=== PATIENT | female | born 1975 | race American Indian/Alaskan Native ===

== ENCOUNTER 2016-12-08 10:00 | Outpatient (CLI) | payer BC ==
[2016-12-08 13:06] LABS: BASOPHILS % (AUTO) 0.4 %; EOSINOPHILS # (AUTO) 0.2 10^3/uL (0.0-0.7); EOSINOPHILS % (AUTO) 1.9 %; HCT - HEMATOCRIT 35.9 % (37.0-47.0); HGB - HEMOGLOBIN 12.2 g/dL (12.0-16.0); LYMPHOCYTES # (AUTO) 1.7 10^3/uL (1.5-3.5); LYMPHOCYTES % (AUTO) 16.8 %; MEAN CORPUSCULAR HEMOGLOBIN 27.6 pg (27.0-31.0); MEAN PLATELET VOLUME 9.7 fL (7.9-10.8); MONOCYTES # (AUTO) 0.4 10^3/uL (0.0-1.0); MONOCYTES % (AUTO) 4.1 %; NEUTROPHILS # (AUTO) 7.9 10^3/uL (1.5-6.6); NEUTROPHILS % (AUTO) 76.8 %; RED BLOOD COUNT 4.43 10^6/uL (4.20-5.40); RED CELL DISTRIBUTION WIDTH 15.3 % (12.0-15.0); UNCORRECTED WHITE BLOOD COUNT 10.3 x10^3/uL; WHITE BLOOD COUNT 10.3 x10^3/uL (4.8-10.8)
[2016-12-08 13:29] LABS: HEMOGLOBIN A1C 0.6 g/dL
[2016-12-08 13:37] LABS: ALBUMIN/GLOBULIN RATIO 1.1 (1.0-2.2); BILIRUBIN,TOTAL 0.4 mg/dL (0.2-1.0); BUN - BLOOD UREA NITROGEN 15 mg/dL (6-20); CARBON DIOXIDE - CO2 26 mmol/L (21-32); CHLORIDE 98 mmol/L (101-111); CHOL/HDL RATIO 6.9 (<4.4); CHOLESTEROL 249 mg/dL; CREATININE 0.6 mg/dL (0.4-1.0); GFR - MDRD 110 (>89); GLUCOSE 95 mg/dL (70-100); HDL CHOLESTEROL 36 mg/dL; POTASSIUM 2.8 mmol/L (3.5-5.0); SODIUM 135 mmol/L (135-145); TOTAL PROTEIN 7.7 g/dL (6.7-8.2); TRIGLYCERIDES 352 mg/dL; VLDL CHOLESTEROL 70 mg/dL
== END 2016-12-08 10:01 ==
LOC: LAB.WCP 10:00
PROVIDERS: ATTEND Family Medicine
DX: Z00.00 Encounter for general adult medical examination without abnormal findings (principal)
CPT/HCPCS: 36415; 80053; 80061; 83036; 84443; 85025

== ENCOUNTER 2016-12-23 08:44 | Outpatient (CLI) | payer BC ==
--- NOTE | 2016-12-24 18:56 | Mammography Report ---
DIGITAL SCREENING MAMMOGRAM: 12/23/2016 CLINICAL INDICATION: A 41-year-old with history of late childbearing for baseline. TECHNIQUE: Routine CC and MLO projections were obtained of the breasts as well as bilateral laterall y exaggerated craniocaudal views. FINDINGS: The breasts demonstrate scattered fibroglandular densities bilaterally. No suspicious mas ses, clustered microcalcifications, or regions of architectural distortion are identified. IMPRESSION: NEGATIVE EXAMINATION. RECOMMENDATION: Routine annual screening unless otherwise clinically indicated. BI-RADS category 1, negative. STANDARD QUALIFYING STATEMENTS 1. This examination was reviewed with the aid of Computer-Aided Detection (CAD). 2. A negative or benign imaging report should not delay biopsy if clinically suspicious findings are present. Consider surgical consultation if warranted. More than 5% of cancers are not identified by i maging. 3. Dense breasts may obscure an underlying neoplasm. JOB #: [id number] EXT JOB #:[id number]
== END 2016-12-23 08:45 | disposition home or self-care (01) ==
LOC: DI.N 08:44
PROVIDERS: ATTEND Family Medicine
DX: Z12.31 Encounter for screening mammogram for malignant neoplasm of breast (principal)
CPT/HCPCS: 77067

== ENCOUNTER 2017-05-07 07:57 | Outpatient (CLI) | payer BC ==
--- NOTE | 2017-05-07 17:04 | MRI Report ---
EXAM: RIGHT HAND MRI WITHOUT CONTRAST EXAM DATE: 05/07/2017 09:28 AM. CLINICAL HISTORY: Chronic bilateral hand pain. Right fifth digit bone lesion. COMPARISON: Right hand radiography from 04/10/2017. TECHNIQUE: Multiplanar, multisequence T1-weighted and fluid-sensitive sequences of the hand without c ontrast. Other: None. FINDINGS: Bones: As seen on the previous radiographs, there is an expansile intramedullary lesion at the proxim al half of the fifth middle phalanx which measures approximately 8 x 8 x 8 mm. The lesion is hyperint ense on the T2-weighted images and slightly hyperintense relative to muscle on the T1-weighted images . There is endosteal scalloping and cortical thinning at the margins of the lesion. No definite corti sudhakar bone destruction. No periosteal edema. No soft tissue mass. No marrow edema within the distal godfrey f of the fifth middle phalanx. No acute fracture. Small subcortical cyst at the base of the first met acarpal. Cartilage: Mild first interphalangeal joint osteoarthritis. Ligaments: The visualized collateral ligaments are intact. Tendons: The flexor and extensor tendons are unremarkable. Musculature: No edema or fatty atrophy. Other: No joint effusions. The subcutaneous tissues are unremarkable. IMPRESSION: 1. Expansile, approximately 8 mm intramedullary lesion at the proximal half of the fifth middle phala nx. Differential would include an enchondroma, epidermoid inclusion cyst, giant cell tumor. A low-gra de chondrosarcoma, particularly if the patient has pain at this location, cannot be entirely excluded . 2. Mild first interphalangeal joint osteoarthritis. [facility] MUSCULOSKELETAL RADIOLOGY SECTION Referring Provider Line: [phone] SITE ID: [id number]
== END 2017-05-07 07:58 | disposition home or self-care (01) ==
LOC: DI 07:57
PROVIDERS: ATTEND Family Medicine
DX: M89.9 Disorder of bone, unspecified (principal); M19.041 Primary osteoarthritis, right hand

== ENCOUNTER 2017-05-29 10:32 | Outpatient (CLI) | payer OTHER, BC | END 2017-05-29 10:33 | disposition home or self-care (01) | LOC: LAB 10:32 | PROVIDERS: ATTEND Nurse Practitioner Obstetrics & Gynecology | DX: O20.0 Threatened abortion (principal) | CPT/HCPCS: 36415; 84702 ==

== ENCOUNTER 2017-05-29 17:26 | Outpatient (CLI) | payer OTHER, BC ==
--- NOTE | 2017-05-29 19:25 | Ultrasound Preliminary Report ---
Exam: US OB FIRST TRIMESTER IMPRESSION: 1. Single small intrauterine gestational sac. Irregular configuration of the sac indeterminate as reg ards to significance since a 4.2 mm pole is seen and therefore partial or blighted ovu m not in the differential. 2. 4.2 mm pole. No cardiac activity nor yolk sac seen. Follow-up serial beta hCGs and pel rene ultrasound should be considered in 2 weeks to determine viability of this . 3. No ovarian torsion. [facility] The call report notification system was initiated by Dr. Francheska Hickman at 19:19 hrs on 05/29/17. The above findings were discussed with Lala Rangel by Dr. Francheska Hickman at 19:23 hrs on 05/29/17. SITE ID: [id number]
--- NOTE | 2017-05-29 19:35 | Ultrasound Report ---
EXAM: FIRST TRIMESTER OBSTETRIC ULTRASOUND (Less than 11 weeks) EXAM DATE: 05/29/2017 06:56 PM. CLINICAL HISTORY: Threatened , check for viability. History of gestational diabetes and preec lampsia. . LMP: 04/07/2017. COMPARISONS: None. TECHNIQUE: Transabdominal and transvaginal ultrasound examination with static image documentation. CLINICAL DATES: EGA 10 weeks 2 days with KHANH 01/12/2018 based on LMP. ASSESSMENT: Gestational Sac: Single intrauterine. Mean gestational sac diameter: 11.2 mm = 5 weeks 6 days, KHANH 1 . Irregular contours. Embryo: CRL (crown-rump length) 4.2 mm = 6 weeks 2 days, KHANH 01/20/2018. Cardiac activity: None seen. Yolk sac: None seen. Amniotic fluid: Not accurately assessed at this gestational age. Early placenta: Not visible at this gestational age. Other: No perigestational fluid collection demonstrated. MATERNAL STRUCTURES: Uterus: Anteverted. Unremarkable. Cervix: Closed. Right Ovary/Adnexa: Unremarkable. The ovary measures 2.4 x 1.5 x 1.3 cm, volume 2.4 cc. Left Ovary/Adnexa: 1.5 cm left corpus luteal cyst. Normal vascularity.. The ovary measures 3.5 x 1.7 x 1.9 cm, volume 5.9 cc. Free Fluid: None. Other: None. IMPRESSION: 1. Single small intrauterine gestational sac. Irregular configuration of the sac indeterminate as reg ards to significance since a 4.2 mm pole is seen and therefore partial or blighted ovu m not in the differential. 2. 4.2 mm pole. No cardiac activity nor yolk sac seen. Follow-up serial beta hCGs and pel rene ultrasound should be considered in 2 weeks to determine viability of this . 3. No ovarian torsion. [facility] The call report notification system was initiated by Dr. Francheska Hickman at 19:19 hrs on 05/29/17. The above findings were discussed with Lala Rangel by Dr. Francheska Hickman at 19:23 hrs on 05/29/17. Referring Provider Line: [phone] SITE ID: [id number]
== END 2017-05-29 17:27 | disposition home or self-care (01) ==
LOC: DI 17:26
PROVIDERS: ATTEND Nurse Practitioner Obstetrics & Gynecology
DX: O20.0 Threatened abortion (principal)
CPT/HCPCS: 36415; 76801; 84702

== ENCOUNTER 2017-05-30 22:43 | Emergency (ER) | payer OTHER, BC ==
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
[2017-05-31] MEDS ORDERED: BACITRACIN OINT TOP STA (00:55)
[2017-05-31] MEDS ORDERED: AMOX/CLAV 875 MG/125 MG TABLET PO STA (00:55)
[2017-05-31 01:07] VITALS: BP 128/76
== END 2017-05-31 01:07 | disposition home or self-care (01) ==
LOC: ED 22:43
DX: O9A.211 Injury, poisoning and certain other consequences of external causes complicating pregnancy, first trimester (principal); S61.551A Open bite of right wrist, initial encounter; Y04.1XXA Assault by human bite, initial encounter; Y93.F9 Activity, other caregiving; Y99.0 Civilian activity done for income or pay; Z3A.01 Less than 8 weeks gestation of pregnancy
CPT/HCPCS: 1040M; 99283; A9270

== ENCOUNTER 2017-06-01 08:19 | Outpatient (CLI) | payer OTHER, BC | END 2017-06-01 08:20 | disposition home or self-care (01) | LOC: LAB 08:19 | PROVIDERS: ATTEND Nurse Practitioner Obstetrics & Gynecology | DX: O20.0 Threatened abortion (principal) | CPT/HCPCS: 36415; 84702 ==

== ENCOUNTER 2017-06-03 10:45 | Outpatient (CLI) | payer OTHER, BC | END 2017-06-03 10:46 | disposition home or self-care (01) | LOC: LAB 10:45 | PROVIDERS: ATTEND Nurse Practitioner Obstetrics & Gynecology | DX: O20.0 Threatened abortion (principal) | CPT/HCPCS: 36415; 84702 ==

== ENCOUNTER 2017-06-05 10:40 | Outpatient (CLI) | payer BC | END 2017-06-05 10:41 | disposition home or self-care (01) | LOC: LAB 10:40 | PROVIDERS: ATTEND Nurse Practitioner Obstetrics & Gynecology | DX: O20.0 Threatened abortion (principal) | CPT/HCPCS: 36415; 84702 ==

== ENCOUNTER 2017-06-10 18:46 | Outpatient (CLI) | payer OTHER, BC ==
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
== END 2017-06-10 18:47 | disposition home or self-care (01) ==
LOC: DI 18:46
PROVIDERS: ATTEND Nurse Practitioner Obstetrics & Gynecology
DX: O20.0 Threatened abortion (principal)
CPT/HCPCS: 76801; 76817

== ENCOUNTER 2017-06-11 11:14 | Outpatient (CLI) | payer OTHER, BC ==
[2017-06-11 12:02] LABS: BASOPHILS # (AUTO) 0.1 10^3/uL (0.0-0.1); BASOPHILS % (AUTO) 1.1 %; EOSINOPHILS # (AUTO) 0.2 10^3/uL (0.0-0.7); EOSINOPHILS % (AUTO) 2.4 %; HGB - HEMOGLOBIN 10.8 g/dL (12.0-16.0); LYMPHOCYTES % (AUTO) 21.4 %; MEAN CORPUSCULAR HEMOGLOBIN 27.5 pg (27.0-31.0); MEAN CORPUSCULAR HGB CONC 33.1 g/dL (32.0-36.0); MEAN PLATELET VOLUME 8.4 fL (7.9-10.8); MONOCYTES # (AUTO) 0.5 10^3/uL (0.0-1.0); MONOCYTES % (AUTO) 4.8 %; NEUTROPHILS # (AUTO) 6.6 10^3/uL (1.5-6.6); NEUTROPHILS % (AUTO) 70.3 %; PLT - PLATELET COUNT 314 10^3/uL (130-450); RED BLOOD COUNT 3.94 10^6/uL (4.20-5.40); RED CELL DISTRIBUTION WIDTH 13.7 % (12.0-15.0); WHITE BLOOD COUNT 9.4 x10^3/uL (4.8-10.8)
[2017-06-11 12:22] LABS: BILIRUBIN,URINE NEGATIVE (NEGATIVE); GLUCOSE, URINE (UA) NEGATIVE (NEGATIVE); KETONES,URINE (UA) NEGATIVE (NEGATIVE); LEUKOCYTE ESTERASE, URINE SMALL (NEGATIVE); NITRITE,URINE NEGATIVE (NEGATIVE); OCCULT BLOOD,URINE MODERATE (NEGATIVE); PROTEIN,URINE NEGATIVE (NEGATIVE); UROBILINOGEN,URINE 0.2 (NORMAL) E.U./dL (NORMAL)
[2017-06-11 12:23] LABS: CLARITY,URINE CLEAR (CLEAR)
== END 2017-06-11 11:15 | disposition home or self-care (01) ==
LOC: LAB 11:14
PROVIDERS: ATTEND Obstetrics & Gynecology
DX: O20.0 Threatened abortion (principal)
CPT/HCPCS: 36415; 81003; 85025; 86850; 86900; 86901

== ENCOUNTER 2017-06-11 13:47 | Day surgery (SDC) | payer OTHER, BC ==
[2017-06-11] MEDS ORDERED: LACTATED RINGERS 1,000 ML IV ONE ×2 (14:29→17:11)
--- NOTE | 2017-06-11 16:15 | OPERATIVE REPORT ---
Operative Report - General Procedure Date: 06/11/17 Planned Procedure: Dilatation and curettage Pre-Op Diagnosis: Incomplete at 8 weeks gestation Procedure Performed: Dilatation and curettage Post Op Diagnosis: Same as above - Procedure Note Primary Surgeon: Nimesh Burrell MD Anesthesia Provider: Felix Pena certified nurse salesperson parts Anesthesia Technique: General LMA Pathology: Products of conception IV Fluids (mL): 500 Estimated Blood Loss (mL): 10 Urine Output (mL): 150 Complications: None
[2017-06-11] MEDS ORDERED: ONDANSETRON 4 MG/2 ML VIAL ONE (16:30)
[2017-06-11] MEDS: HYDROmorphone 1 MG/ML SYRINGE ONE ×3 (16:35→16:57)
[2017-06-11] MEDS ORDERED: HYDROcod/ACETAM 5/325 MG TABLET ONE (17:48)
[2017-06-11 18:20] VITALS: BP 140/84
--- NOTE | 2017-06-11 19:43 | OPERATIVE REPORT ---
DATE OF SERVICE: 06/11/2017 Physician: Nimesh Burrell MD PREOPERATIVE DIAGNOSES 1. Incomplete at 8 weeks. 2. Uterine bleeding. POSTOPERATIVE DIAGNOSES 1. Incomplete at 8 weeks. 2. Uterine bleeding. PROCEDURE PERFORMED: Dilatation and curettage with suction. SURGEON: Nimesh Burrell MD, FACOG, FICS ANESTHESIA: LMA with general. SUSTAINABILITY COACH: Felix Pena CRNA PATHOLOGY: Products of conception, approximately 25 mL. IV FLUIDS: 500. ESTIMATED BLOOD LOSS: 10 mL URINE OUTPUT: 150. The patient straight catheterized prior to procedure. COMPLICATIONS: None. FINDINGS: Exam under anesthesia finds the vulva to have a small fibroma on the left side and an additional set of skin tags. There are no lesions suggestive of dysplasia or HPV. In the vagina there is no blood or discharge, but it had been surgically prepped. CERVIX: Dilated to 0.5 cm, long. Uterus: 7-8 week size. Adnexa: Normal ovaries. No mass. TECHNIQUE: Prior to the procedure, I reviewed the risks and benefits to the patient, in addition to all the alternatives for incomplete . The patient strongly desires to "get this over with." She is aware that D and C is a surgical procedure that carries risk of bleeding, infection, damage to the uterus and anesthesia reaction. Informed consent paperwork was signed. The patient was brought to the operating room and placed in the supine position on the OR table. Exam under anesthesia was conducted. Abdomen was prepped and draped in a customary sterile fashion. Timeout briefing was done per protocol. Clamshell speculum was brought and inserted into the vagina to give excellent view of the cervix. The anterior cervical lip was grasped with single-tooth tenaculum. Serial application of Hegar probes was done to size 10. At this point, a medium size curet was used to sample all quadrants of the , which was located mostly in the left anterior quadrant of the uterus. The sharp curet was removed and 10 suction curette was placed and appropriate amount of negative suction was obtained. The curet was maneuvered in a systematic fashion and harvested a small amount of tissue. Uterine cry was elicited. At this point, the procedure was completed. All instruments were removed from the vagina. Bleeding was well controlled. The patient was uneventfully aroused from anesthesia and taken to the recovery room in good condition. Postoperatively, findings were reviewed. She was given Toradol in the OR. She is Rh positive and therefore RhoGAM is not required. When the patient was alert and oriented, she was prepared for discharge. Warning sign and callback instructions were reviewed. She will be seen in 2 weeks for pathology review. In addition to pathology review, we will have an extended discussion on contraception options. DISCHARGE MEDICATIONS 1. Motrin 800 mg q. 8 hours. 2. Erin 5/325 1-2 tabs q. 4 hours breakthrough pain. 3. Colace 250 mg twice daily. TD: 06/11/2017 19:42
== END 2017-06-11 13:48 | disposition home or self-care (01) ==
LOC: SDS 13:47
PROVIDERS: ATTEND Obstetrics & Gynecology
PROC: 10D17ZZ Extraction of Products of Conception, Retained, Via Natural or Artificial Opening (ICD-10-PCS; principal; 2017-06-11 15:00)
DX: O03.4 Incomplete spontaneous abortion without complication (principal); N93.9 Abnormal uterine and vaginal bleeding, unspecified
CPT/HCPCS: 59812; A9270; J1170; J7120

== ENCOUNTER 2017-06-25 08:00 | Outpatient (CLI) | payer OTHER, BC ==
[2017-06-25 19:08] LABS: BILIRUBIN,URINE NEGATIVE (NEGATIVE); GLUCOSE, URINE (UA) NEGATIVE (NEGATIVE); KETONES,URINE (UA) NEGATIVE (NEGATIVE); LEUKOCYTE ESTERASE, URINE NEGATIVE (NEGATIVE); NITRITE,URINE NEGATIVE (NEGATIVE); OCCULT BLOOD,URINE NEGATIVE (NEGATIVE); PROTEIN,URINE NEGATIVE (NEGATIVE); UROBILINOGEN,URINE 0.2 (NORMAL) E.U./dL (NORMAL)
[2017-06-25 19:20] LABS: BACTERIA,URINE Few /HPF (None Seen); CLARITY,URINE CLEAR (CLEAR); MUCUS,URINE Few Strands; RBC,URINE 0-5 /HPF (0-5); SQUAMOUS EPITHELIAL CELL,UR MOD Squamous (<= Few)
== END 2017-06-25 08:01 | disposition home or self-care (01) ==
LOC: LAB.N 08:00
PROVIDERS: ATTEND Obstetrics & Gynecology
DX: O03.9 Complete or unspecified spontaneous abortion without complication (principal); R30.0 Dysuria
CPT/HCPCS: 36415; 81001; 84702; 87086

== ENCOUNTER 2017-07-23 14:23 | Outpatient (CLI) | payer OTHER, BC ==
--- NOTE | 2017-07-24 09:23 | Ultrasound Report ---
PELVIC ULTRASOUND: 07/23/2017 CLINICAL INDICATION: Followup left corpus luteum. TECHNIQUE: Transabdominal pelvic ultrasound performed for global evaluation. Transvaginal pelvic ultrasound performed for detailed evaluation. Real-time scanning performed and static images obtained. FINDINGS: The uterus is anteverted, measuring 7.6 x 4.9 x 3.4 cm. The endometrium measures 12 mm. No focal myometrial lesion is present. The right ovary measures 2.8 x 3.4 x 1.7 cm, and appears unremarkable. The left ovary measures 2.5 x 2.5 x 1.4 cm, and demonstrates a small follicle. No free fluid is present. IMPRESSION: NORMAL PELVIC ULTRASOUND. TD: 07/24/2017 09:22
== END 2017-07-23 14:24 | disposition home or self-care (01) ==
LOC: DI 14:23
PROVIDERS: ATTEND Obstetrics & Gynecology
DX: N83.209 Unspecified ovarian cyst, unspecified side (principal)
CPT/HCPCS: 76830; 76856

== ENCOUNTER 2017-07-31 10:22 | Outpatient (CLI) | payer OTHER, BC ==
[2017-07-31 11:10] LABS: BASOPHILS # (AUTO) 0.1 10^3/uL (0.0-0.1); BASOPHILS % (AUTO) 0.5 %; EOSINOPHILS # (AUTO) 0.2 10^3/uL (0.0-0.7); EOSINOPHILS % (AUTO) 1.1 %; HGB - HEMOGLOBIN 12.6 g/dL (12.0-16.0); LYMPHOCYTES # (AUTO) 1.5 10^3/uL (1.5-3.5); LYMPHOCYTES % (AUTO) 8.3 %; MEAN CORPUSCULAR HGB CONC 33.1 g/dL (32.0-36.0); MEAN CORPUSCULAR VOLUME 81.6 fL (81.0-99.0); MEAN PLATELET VOLUME 9.9 fL (7.9-10.8); MONOCYTES # (AUTO) 0.6 10^3/uL (0.0-1.0); MONOCYTES % (AUTO) 3.4 %; NEUTROPHILS # (AUTO) 15.4 10^3/uL (1.5-6.6); NEUTROPHILS % (AUTO) 86.7 %; PLT - PLATELET COUNT 295 10^3/uL (130-450); RED BLOOD COUNT 4.66 10^6/uL (4.20-5.40); RED CELL DISTRIBUTION WIDTH 14.6 % (12.0-15.0); WHITE BLOOD COUNT 17.8 x10^3/uL (4.8-10.8)
[2017-07-31 11:24] LABS: ALBUMIN 4.4 g/dL (3.2-5.5); ALBUMIN/GLOBULIN RATIO 1.2 (1.0-2.2); BILIRUBIN,TOTAL 0.4 mg/dL (0.2-1.0); CALCIUM 9.2 mg/dL (8.5-10.3); CREATININE 0.6 mg/dL (0.4-1.0); TOTAL PROTEIN 8.2 g/dL (6.7-8.2)
== END 2017-07-31 10:23 | disposition home or self-care (01) ==
LOC: LAB 10:22
PROVIDERS: ATTEND Family Medicine
DX: I10 Essential (primary) hypertension (principal); E87.6 Hypokalemia
CPT/HCPCS: 36415; 80053; 82088; 84244; 85025

== ENCOUNTER 2017-08-04 10:22 | Outpatient (CLI) | payer OTHER, BC ==
[2017-08-04 12:41] LABS: BASOPHILS # (AUTO) 0.1 10^3/uL (0.0-0.1); BASOPHILS % (AUTO) 0.6 %; EOSINOPHILS # (AUTO) 0.2 10^3/uL (0.0-0.7); EOSINOPHILS % (AUTO) 1.9 %; HGB - HEMOGLOBIN 11.3 g/dL (12.0-16.0); LYMPHOCYTES # (AUTO) 1.2 10^3/uL (1.5-3.5); LYMPHOCYTES % (AUTO) 9.9 %; MEAN CORPUSCULAR HEMOGLOBIN 26.9 pg (27.0-31.0); MEAN CORPUSCULAR VOLUME 81.7 fL (81.0-99.0); MEAN PLATELET VOLUME 10.1 fL (7.9-10.8); MONOCYTES # (AUTO) 0.3 10^3/uL (0.0-1.0); MONOCYTES % (AUTO) 2.6 %; NEUTROPHILS # (AUTO) 10.6 10^3/uL (1.5-6.6); PLT - PLATELET COUNT 286 10^3/uL (130-450); RED BLOOD COUNT 4.19 10^6/uL (4.20-5.40); RED CELL DISTRIBUTION WIDTH 14.9 % (12.0-15.0); WHITE BLOOD COUNT 12.4 x10^3/uL (4.8-10.8)
[2017-08-04 12:44] LABS: ALBUMIN 3.8 g/dL (3.2-5.5); BILIRUBIN,TOTAL 0.3 mg/dL (0.2-1.0); CALCIUM 8.9 mg/dL (8.5-10.3); CREATININE 0.6 mg/dL (0.4-1.0); TOTAL PROTEIN 7.6 g/dL (6.7-8.2)
== END 2017-08-04 10:23 | disposition home or self-care (01) ==
LOC: LAB.WCP 10:22
PROVIDERS: ATTEND Family Medicine
DX: R89.9 Unspecified abnormal finding in specimens from other organs, systems and tissues (principal); I10 Essential (primary) hypertension; R20.0 Anesthesia of skin; R42 Dizziness and giddiness
CPT/HCPCS: 36415; 80053; 85025

== ENCOUNTER 2017-10-04 13:16 | Outpatient (CLI) | payer OTHER | END 2017-10-04 13:17 | disposition critical access hospital (66) | LOC: EMS 13:16 | PROVIDERS: ATTEND Surgery | DX: M25.512 Pain in left shoulder (principal); M25.561 Pain in right knee; V59.9XXA Occupant (driver) (passenger) of pick-up truck or van injured in unspecified traffic accident, initial encounter; Y92.414 Local residential or business street as the place of occurrence of the external cause | CPT/HCPCS: A0425; A0429 ==

== ENCOUNTER 2017-10-04 13:35 | Emergency (ER) | payer BC, OTHER ==
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
[2017-10-04 13:59] VITALS: BP 131/88
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
== END 2017-10-04 15:27 | disposition home or self-care (01) ==
LOC: ED 13:35
DX: S16.1XXA Strain of muscle, fascia and tendon at neck level, initial encounter (principal); S40.012A Contusion of left shoulder, initial encounter; S80.01XA Contusion of right knee, initial encounter; V49.40XA Driver injured in collision with unspecified motor vehicles in traffic accident, initial encounter; I10 Essential (primary) hypertension; Z87.891 Personal history of nicotine dependence
CPT/HCPCS: 72040; 99283

== ENCOUNTER → 2017-12-09 | Outpatient (CLI) | payer OTHER ==
[2017-12-09 12:21] LABS: ALBUMIN/GLOBULIN RATIO 1.1 (1.0-2.2); BILIRUBIN,TOTAL 0.6 mg/dL (0.2-1.0); CREATININE 0.7 mg/dL (0.4-1.0); TOTAL PROTEIN 7.7 g/dL (6.7-8.2)
[2017-12-09 12:25] LABS: BASOPHILS # (AUTO) 0.1 10^3/uL (0.0-0.1); EOSINOPHILS # (AUTO) 0.2 10^3/uL (0.0-0.7); EOSINOPHILS % (AUTO) 2.7 %; HGB - HEMOGLOBIN 12.1 g/dL (12.0-16.0); LYMPHOCYTES # (AUTO) 1.8 10^3/uL (1.5-3.5); LYMPHOCYTES % (AUTO) 25.9 %; MEAN CORPUSCULAR HEMOGLOBIN 26.9 pg (27.0-31.0); MEAN CORPUSCULAR HGB CONC 33.3 g/dL (32.0-36.0); MEAN CORPUSCULAR VOLUME 80.6 fL (81.0-99.0); MEAN PLATELET VOLUME 9.6 fL (7.9-10.8); MONOCYTES # (AUTO) 0.4 10^3/uL (0.0-1.0); MONOCYTES % (AUTO) 5.4 %; NEUTROPHILS # (AUTO) 4.6 10^3/uL (1.5-6.6); PLT - PLATELET COUNT 347 10^3/uL (130-450); RED BLOOD COUNT 4.48 10^6/uL (4.20-5.40)
== END ==
LOC: LAB.WCP 08:00
PROVIDERS: ATTEND Family Medicine
DX: G43.109 Migraine with aura, not intractable, without status migrainosus (principal)
CPT/HCPCS: 36415; 80053; 84146; 85025

== ENCOUNTER 2018-03-25 09:40 | Outpatient (CLI) | payer OTHER ==
[2018-03-25 13:17] LABS: BASOPHILS % (AUTO) 0.5 %; EOSINOPHILS # (AUTO) 0.1 10^3/uL (0.0-0.7); EOSINOPHILS % (AUTO) 1.5 %; HGB - HEMOGLOBIN 11.2 g/dL (12.0-16.0); LYMPHOCYTES # (AUTO) 1.2 10^3/uL (1.5-3.5); LYMPHOCYTES % (AUTO) 13.7 %; MEAN CORPUSCULAR HEMOGLOBIN 26.7 pg (27.0-31.0); MEAN CORPUSCULAR HGB CONC 33.4 g/dL (32.0-36.0); MEAN CORPUSCULAR VOLUME 79.9 fL (81.0-99.0); MEAN PLATELET VOLUME 9.6 fL (7.9-10.8); MONOCYTES # (AUTO) 0.3 10^3/uL (0.0-1.0); MONOCYTES % (AUTO) 3.9 %; NEUTROPHILS # (AUTO) 7.1 10^3/uL (1.5-6.6); NEUTROPHILS % (AUTO) 80.4 %; PLT - PLATELET COUNT 349 10^3/uL (130-450); RED CELL DISTRIBUTION WIDTH 15.7 % (12.0-15.0); WHITE BLOOD COUNT 8.8 x10^3/uL (4.8-10.8)
[2018-03-25 13:46] LABS: ALBUMIN 3.9 g/dL (3.2-5.5); ALKALINE PHOSPHATASE 59 IU/L (42-121); ALT ALANINE AMINOTRANSFERASE 15 IU/L (10-60); AST ASPARTATE AMINOTRANSFERASE 17 IU/L (10-42); BILIRUBIN,TOTAL 0.4 mg/dL (0.2-1.0); BUN - BLOOD UREA NITROGEN 11 mg/dL (6-20); CALCIUM 8.9 mg/dL (8.5-10.3); CARBON DIOXIDE - CO2 24 mmol/L (21-32); CHLORIDE 100 mmol/L (101-111); CHOL/HDL RATIO 4.3 (<4.4); CHOLESTEROL 213 mg/dL; CREATININE 0.7 mg/dL (0.4-1.0); GFR - MDRD 92 (>89); GLUCOSE 97 mg/dL (70-100); HDL CHOLESTEROL 50 mg/dL; LDL CHOLESTEROL,CALCULATED 111 mg/dL; LDL/HDL RATIO 2.2 (<4.4); SODIUM 135 mmol/L (135-145); TOTAL PROTEIN 7.7 g/dL (6.7-8.2); VLDL CHOLESTEROL 52 mg/dL
[2018-03-25 14:01] LABS: HB2 TOTAL 11.8 g/dL; HEMOGLOBIN A1C 0.49 g/dL
== END 2018-03-25 23:59 | disposition home or self-care (01) ==
LOC: LAB.WCP 09:40
PROVIDERS: ATTEND Family Medicine
DX: Z00.00 Encounter for general adult medical examination without abnormal findings (principal); R25.2 Cramp and spasm; E78.5 Hyperlipidemia, unspecified; L65.9 Nonscarring hair loss, unspecified; K21.9 Gastro-esophageal reflux disease without esophagitis
CPT/HCPCS: 36415; 80053; 80061; 83036; 83721; 83735; 84439; 84443; 85025

== ENCOUNTER 2018-09-01 07:13 | Outpatient (CLI) | payer OTHER ==
--- NOTE | 2018-09-01 12:17 | Ultrasound Report ---
Reason: ABDOMINAL PAIN,LEFT LOWER QUADRANT Procedure Date: 09/01/2018 Accession Number: [id number] / [id number] Procedure: US - Pelvic w/Transvaginal CPT Code: FULL RESULT: EXAM: PELVIC ULTRASOUND EXAM DATE: 09/01/2018 08:19 AM. CLINICAL HISTORY: ABDOMINAL PAIN, LEFT LOWER QUADRANT. COMPARISON: PELVIC W/TRANSVAGINAL 07/23/2017 2:31 PM. TECHNIQUE: Realtime transabdominal pelvic scan performed to identify the uterus and adnexa and as an overview of other pelvic structures, followed by transvaginal scan to provide greater detail of the uterus and adnexa, with static image documentation. FINDINGS: Uterus: 8.0 x 3.2 x 4.4 cm, volume 78.9 cc. Anteverted position. Normal overall size and echotexture. Masses: None. Endometrium: 2.5 mm. Normal. Cervix: Unremarkable. Right Ovary: 2.0 x 1.3 x 1.6 cm, volume 2.5 cc. Normal echotexture and blood flow. Left Ovary: 2.4 x 1.2 x 1.8 cm, volume 2.7 cc. Normal echotexture and blood flow. Free Fluid: None. Other: None. IMPRESSION: Normal pelvic ultrasound. [facility]
== END 2018-09-01 07:14 | disposition home or self-care (01) ==
LOC: DI 07:13
PROVIDERS: ATTEND Physician Assistant Medical
DX: R10.32 Left lower quadrant pain (principal)
CPT/HCPCS: 76830; 76856

== ENCOUNTER 2018-09-01 07:15 | Outpatient (CLI) | payer OTHER ==
--- NOTE | 2018-09-01 12:17 | Ultrasound Report ---
Reason: ABDOMINAL PAIN Procedure Date: 09/01/2018 Accession Number: [id number] / [id number] Procedure: US - Abdomen Complete CPT Code: FULL RESULT: EXAM: ABDOMEN ULTRASOUND EXAM DATE: 09/01/2018 09:05 AM. CLINICAL HISTORY: Abdominal pain. COMPARISON: None. TECHNIQUE: Real-time scanning was performed with static images obtained. FINDINGS: Liver: Echotexture is mildly coarse with somewhat increased echogenicity which limits detection of underlying masses though no mass is seen. Right lobe of the liver measures at least 20 cm. Main portal vein flow: Hepatopetal. Gallbladder: Surgically absent. Biliary System: Common bile duct measures 6 mm. No intrahepatic or extrahepatic ductal dilatation. Pancreas: Visualized portion is unremarkable. Kidneys: Right: 12.2 cm longitudinally. Normal. No contour-deforming mass, stones, or hydronephrosis. Left: 11.0 cm longitudinally. Normal. No contour-deforming mass, stones, or hydronephrosis. Spleen: 9.2 cm. Normal in size and echotexture. Aorta and Inferior Vena Cava: Unremarkable. Other: None. IMPRESSION: Mildly coarsened echotexture and increased echogenicity of the liver is nonspecific but can be seen with parenchymal disease such as steatosis. [facility]
== END 2018-09-01 07:16 | disposition home or self-care (01) ==
LOC: DI 07:15
PROVIDERS: ATTEND Family Medicine
DX: R10.32 Left lower quadrant pain (principal)
CPT/HCPCS: 76700; 76830; 76856

== ENCOUNTER 2018-09-22 09:58 | Outpatient (CLI) | payer OTHER, BC ==
[2018-09-22 14:17] LABS: BASOPHILS # (AUTO) 0.1 10^3/uL (0.0-0.1); BASOPHILS % (AUTO) 0.7 %; EOSINOPHILS # (AUTO) 0.1 10^3/uL (0.0-0.7); EOSINOPHILS % (AUTO) 1.6 %; HGB - HEMOGLOBIN 10.7 g/dL (12.0-16.0); LYMPHOCYTES # (AUTO) 1.5 10^3/uL (1.5-3.5); LYMPHOCYTES % (AUTO) 17.7 %; MEAN CORPUSCULAR HEMOGLOBIN 24.5 pg (27.0-31.0); MEAN CORPUSCULAR HGB CONC 31.9 g/dL (32.0-36.0); MEAN CORPUSCULAR VOLUME 76.9 fL (81.0-99.0); MEAN PLATELET VOLUME 9.2 fL (7.9-10.8); MONOCYTES # (AUTO) 0.3 10^3/uL (0.0-1.0); MONOCYTES % (AUTO) 4.1 %; NEUTROPHILS # (AUTO) 6.4 10^3/uL (1.5-6.6); NEUTROPHILS % (AUTO) 75.9 %; PLT - PLATELET COUNT 318 10^3/uL (130-450); RED BLOOD COUNT 4.37 10^6/uL (4.20-5.40); RED CELL DISTRIBUTION WIDTH 15.9 % (12.0-15.0); WHITE BLOOD COUNT 8.5 x10^3/uL (4.8-10.8)
[2018-09-22 14:26] LABS: ALBUMIN 3.8 g/dL (3.2-5.5); BILIRUBIN,TOTAL 0.4 mg/dL (0.2-1.0); CALCIUM 8.9 mg/dL (8.5-10.3); CREATININE 0.6 mg/dL (0.4-1.0); TOTAL PROTEIN 7.6 g/dL (6.7-8.2)
== END 2018-09-22 09:59 | disposition home or self-care (01) ==
LOC: LAB.WCP 09:58
PROVIDERS: ATTEND Family Medicine
DX: R10.9 Unspecified abdominal pain (principal)
CPT/HCPCS: 36415; 80053; 82150; 83690; 85025

== ENCOUNTER 2018-09-30 08:00 | Outpatient (CLI) | payer OTHER, BC ==
[2018-09-30 12:33] LABS: H. PYLORIS ANTIGEN STL NEGATIVE (Negative)
== END 2018-09-30 23:59 | disposition home or self-care (01) ==
LOC: LAB.WCP 08:00
PROVIDERS: ATTEND Family Medicine
DX: K21.9 Gastro-esophageal reflux disease without esophagitis (principal)
CPT/HCPCS: 87338

== ENCOUNTER 2018-11-03 10:55 | Day surgery (SDC) | payer OTHER, BC ==
[2018-11-03 11:19] LABS: HCG UR QUAL NEGATIVE
[2018-11-03] MEDS ORDERED: MIDAZOLAM 2 MG/2 ML VIAL IVP ONE (11:41)
[2018-11-03] MEDS ORDERED: fentaNYL 250 MCG/5 ML VIAL IVP ONE (11:41)
[2018-11-03] MEDS ORDERED: LACTATED RINGERS 1,000 ML IV ONE (11:51)
[2018-11-03] MEDS ORDERED: LIDO GARGLE 30 ML BOTTLE ONE (11:51)
[2018-11-03] MEDS ORDERED: LIDO GARGLE 30 ML BOTTLE PO ONE ×2 (12:01)
[2018-11-03 12:21] VITALS: BP 133/71
== END 2018-11-03 10:56 | disposition home or self-care (01) ==
LOC: SDS 10:55
PROVIDERS: ATTEND Surgery
PROC: 0DB78ZX Excision of Stomach, Pylorus, Via Natural or Artificial Opening Endoscopic, Diagnostic (ICD-10-PCS; 2018-11-03)
PROC: 0DB48ZX Excision of Esophagogastric Junction, Via Natural or Artificial Opening Endoscopic, Diagnostic (ICD-10-PCS; 2018-11-03)
PROC: 0DB98ZX Excision of Duodenum, Via Natural or Artificial Opening Endoscopic, Diagnostic (ICD-10-PCS; principal; 2018-11-03 12:30)
DX: R10.9 Unspecified abdominal pain (principal); K21.9 Gastro-esophageal reflux disease without esophagitis; I10 Essential (primary) hypertension; K29.70 Gastritis, unspecified, without bleeding; K44.9 Diaphragmatic hernia without obstruction or gangrene; K31.7 Polyp of stomach and duodenum; Z87.891 Personal history of nicotine dependence
CPT/HCPCS: 43239; 81025; A9270; J3010; J7120

== ENCOUNTER 2018-11-08 08:00 | Outpatient (CLI) | payer OTHER, BC ==
[2018-11-08 18:34] LABS: ABSOLUTE RETICS # AUTO 0.054 10^6/uL (0.020-0.110); RED BLOOD COUNT 4.41 10^6/uL (4.20-5.40)
[2018-11-08 18:54] LABS: % IRON SATURATION 9 % (20-50); IRON 41 ug/dL (28-170); TOTAL IRON BINDING CAPACITY 475 ug/dL (250-450); TRANSFERRIN 339 mg/dL (192-382)
[2018-11-08 19:00] LABS: FERRITIN 9.4 ng/mL (11.0-306.8)
[2018-11-08 19:23] LABS: FOLLICLE STIMULATING HORMONE 1.11 mIU/mL
[2018-11-08 19:41] LABS: LUTEINIZING HORMONE < 0.20 mIU/mL
== END 2018-11-08 23:59 | disposition home or self-care (01) ==
LOC: LAB.WCP 08:00
PROVIDERS: ATTEND Family Medicine
DX: N95.9 Unspecified menopausal and perimenopausal disorder (principal); D64.9 Anemia, unspecified; R10.9 Unspecified abdominal pain
CPT/HCPCS: 36415; 82670; 82728; 83001; 83002; 83540; 84466; 85044

== ENCOUNTER 2018-12-17 08:00 | Outpatient (CLI) | payer OTHER, BC ==
[2018-12-17 18:33] LABS: BASOPHILS # (AUTO) 0.1 10^3/uL (0.0-0.1); BASOPHILS % (AUTO) 0.4 %; EOSINOPHILS % (AUTO) 0.2 %; HGB - HEMOGLOBIN 11.6 g/dL (12.0-16.0); LYMPHOCYTES # (AUTO) 1.6 10^3/uL (1.5-3.5); MEAN CORPUSCULAR HEMOGLOBIN 26.9 pg (27.0-31.0); MEAN CORPUSCULAR HGB CONC 31.8 g/dL (32.0-36.0); MEAN CORPUSCULAR VOLUME 84.7 fL (81.0-99.0); MEAN PLATELET VOLUME 11.8 fL (7.9-10.8); MONOCYTES # (AUTO) 1.2 10^3/uL (0.0-1.0); MONOCYTES % (AUTO) 6.8 %; NEUTROPHILS # (AUTO) 14.8 10^3/uL (1.5-6.6); NEUTROPHILS % (AUTO) 83.2 %; PLT - PLATELET COUNT 283 10^3/uL (130-450); RED BLOOD COUNT 4.31 10^6/uL (4.20-5.40); RED CELL DISTRIBUTION WIDTH 17.7 % (12.0-15.0); WHITE BLOOD COUNT 17.8 x10^3/uL (4.8-10.8)
[2018-12-17 18:45] LABS: ALBUMIN 3.6 g/dL (3.2-5.5); ALBUMIN/GLOBULIN RATIO 0.9 (1.0-2.2); BILIRUBIN,TOTAL 0.3 mg/dL (0.2-1.0); CALCIUM 9.1 mg/dL (8.5-10.3); CREATININE 0.8 mg/dL (0.4-1.0); TOTAL PROTEIN 7.6 g/dL (6.7-8.2)
== END 2018-12-17 23:59 | disposition home or self-care (01) ==
LOC: LAB.WCP 08:00
PROVIDERS: ATTEND Family Medicine
DX: R10.9 Unspecified abdominal pain (principal)
CPT/HCPCS: 36415; 80053; 82150; 83690; 84443; 85025

== ENCOUNTER 2018-12-20 11:50 | Inpatient (IN) | payer OTHER, BC ==
[2018-12-20] MEDS ORDERED: PROMETHAZINE INJ 25 MG in SODIUM CHLORIDE 0.9% 50 ML IV STA (12:32)
[2018-12-20] MEDS ORDERED: diphenhydrAMINE INJ 50 MG/ML VIAL IVP STA (12:32)
[2018-12-20] MEDS ORDERED: SODIUM CHLORIDE 0.9% 1,000 ML IV ONE ×2 (12:32→14:45)
[2018-12-20] MEDS ORDERED: KETOROLAC 30 MG/ML VIAL IVP STA (12:32)
--- NOTE | 2018-12-20 12:35 | ED Physician Documentation ---
History of Present Illness - Stated complaint Stated Complaint: BARILLAS/NAUSEA/BODY PAIN - Chief complaint Chief Complaint: Neuro - History obtained from History obtained from: Patient, Family - History of Present Illness Timing: How many days ago (4-5) Pain level max: 6 Pain level now: 5 Improved by: nothing Worsened by: nothing - Additonal information Additional information: 43-year-old female presents to the emergency department complaining of all over body pain for the past 4 to 5 days. She states that she was scheduled for a CT scan of her abdomen today for monitoring of a hiatal hernia, but "could not take it anymore" and checked into the emergency department instead. She states that she took Tylenol and Motrin yesterday without relief. Has not taken anything today. She denies being out of any medications. No changes to her medications. She has had headaches occasionally. She has chronic nausea, did not take her nausea medications today. She states that she has had no fevers at home. No recent illnesses. No coughing, no diarrhea. She does states she is urinating more frequently than usual. Review of Systems Ten Systems: 10 systems reviewed and negative Constitutional: denies: Fever, Chills Eyes: denies: Loss of vision, Decreased vision, Photophobia Ears: denies: Ear pain, Drainage/discharge Nose: denies: Rhinorrhea / runny nose, Congestion Throat: denies: Sore throat Cardiac: denies: Chest pain / pressure Respiratory: denies: Cough GI: denies: Vomiting, Diarrhea : reports: Frequency. denies: Dysuria, Hesitancy, Incontinent, Now EGA Skin: denies: Rash Musculoskeletal: denies: Neck pain, Back pain Neurologic: denies: Focal weakness, Numbness, Confused PD PAST MEDICAL HISTORY - Past Medical History Cardiovascular: Hypertension Respiratory: Asthma, Other GI: GERD, Cholelithiasis HEENT: Chronic vision loss Psych: Depression, Anxiety, ADD/ADHD Musculoskeletal: Chronic back pain, Other - Past Surgical History Past Surgical History: Yes General: Cholecystectomy Ortho: Other /BURR PICKER: section HEENT: Tonsil/Adenoidectomy Derm: Other - Present Medications Home Medications: Ambulatory Orders Medication Instructions Recorded Confirmed Acetaminophen 1 - 2 tab PO TID PRN 06/11/17 12/20/18 Baclofen 10 mg PO TID PRN 06/11/17 12/20/18 Cholecalciferol (Vitamin D3) 1 cap PO DAILY 06/11/17 12/20/18 [Vitamin D3] Citalopram Hydrobromide [Celexa] 30 mg PO DAILY 06/11/17 12/20/18 Ibuprofen 400 - 600 mg PO Q6HR PRN 06/11/17 12/20/18 Metformin HCl 500 mg PO DAILY 06/11/17 12/20/18 Methylphenidate HCl 20 mg PO TID 06/11/17 12/20/18 Multivitamin [Multiple Vitamins] 1 each PO DAILY 06/11/17 12/20/18 Omeprazole [PriLOSEC] 20 mg PO BID 06/11/17 12/20/18 Potassium Chloride [Klor-Con M20] 20 meq PO DAILY 06/11/17 12/20/18 Triamterene/Hydrochlorothiazid 1 each PO DAILY 06/11/17 12/20/18 [Triamterene-Hctz 37.5-25 mg Tb] Vitamin B Complex 1 each PO DAILY 06/11/17 12/20/18 Vitamin E 400 unit PO BID 06/11/17 12/20/18 amLODIPine [Norvasc] 10 mg PO DAILY 06/11/17 12/20/18 raNITIdine [Zantac] 150 mg PO DAILY PRN 06/11/17 12/20/18 Dicyclomine [Bentyl] 10 mg PO PRN PRN 12/20/18 12/20/18 Labetalol [Trandate] 100 mg PO TID 12/20/18 12/20/18 Metoclopramide [Reglan] 10 mg PO ACHS 12/20/18 12/20/18 Norgestimate-Ethinyl Estradiol 1 tab PO DAILY 12/20/18 12/20/18 [Tri-Sprintec Tablet] - Allergies Allergies/Adverse Reactions: Allergies Allergy/AdvReac Type Severity Reaction Status Date / Time bupropion Allergy Unknown Verified 10/04/17 13:46 doxycycline Allergy Hives Verified 10/04/17 13:46 metronidazole Allergy Hives Verified 10/04/17 13:46 Sulfa (Sulfonamide Allergy Unknown Verified 10/04/17 13:46 Antibiotics) - Social History Does the pt smoke?: No Smoking Status: Former smoker Does the pt drink ETOH?: Yes Does the pt have substance abuse?: No - Immunizations Immunizations are current?: Yes - POLST Patient has POLST: No PD ED PE NORMAL - Vitals Vital signs reviewed: Yes - General General: Alert and oriented X 3, No acute distress, Well developed/nourished - HEENT HEENT: PERRL, Ears normal, Moist mucous membranes, Pharynx benign - Neck Neck: Supple, no meningeal sign, No adenopathy - Cardiac Cardiac: RRR, No murmur - Respiratory Respiratory: No respiratory distress, Clear bilaterally - Abdomen Abdomen: Normal bowel sounds, Soft, Non tender, Non distended - Back Back: No CVA TTP, No spinal TTP - Derm Derm: Warm and dry - Extremities Extremities: No edema, No calf tenderness / cord - Neuro Neuro: Alert and oriented X 3, diamond mounter 2-12 intact, No motor deficit, No sensory deficit, Normal speech Eye Opening: Spontaneous Motor: Obeys Commands Verbal: Oriented GCS Score: 15 - Psych Psych: Normal mood, Normal affect Results - Vitals Vitals: Vital Signs - 24 hr 12/20/18 12/20/18 12/20/18 11:56 13:30 15:00 Temperature 36 C L 37.3 C Heart Rate 94 81 79 Respiratory 18 16 16 Rate Blood Pressure 105/64 105/61 110/66 O2 Saturation 100 94 99 Oxygen O2 Source Room air - Labs Labs: Laboratory Tests 12/20/18 12/20/18 12/20/18 12:43 12:43 12:43 WBC 28.7 H RBC 4.17 L Hgb 11.5 L Hct 34.0 L MCV 81.5 MCH 27.6 MCHC 33.8 RDW 16.7 H Plt Count 330 MPV 10.7 Neut # (Auto) 24.4 H Lymph # (Auto) 1.5 Pierce # (Auto) 2.0 H Eos # (Auto) 0.1 Baso # (Auto) 0.1 Absolute Nucleated RBC 0.00 Nucleated RBC % 0.0 Manual Slide Review Indicated RBC Morph Micro Appear 3+ ANISOCYTOSIS Sodium 134 L Potassium 2.8 L Chloride 94 L Carbon Dioxide 25 Anion Gap 15.0 H BUN 18 Creatinine 1.6 H Estimated GFR (MDRD) 35 L Glucose 138 H Calcium 8.9 Total Bilirubin 0.6 AST 16 ALT 15 Alkaline Phosphatase 96 Total Protein 8.3 H Albumin 3.3 Globulin 5.0 H Albumin/Globulin Ratio 0.7 L Lipase 14 L TSH 4.07 Urine Color Urine Clarity Urine pH Ur Specific Forreston Urine Protein Urine Glucose (UA) Urine Ketones Urine Occult Blood Urine Nitrite Urine Bilirubin Urine Urobilinogen Ur Leukocyte Esterase Urine RBC Urine WBC Urine WBC Clumps Ur Squamous Epith Cells Urine Bacteria Ur Microscopic Review Urine Culture Comments 12/20/18 14:09 WBC RBC Hgb Hct MCV MCH MCHC RDW Plt Count MPV Neut # (Auto) Lymph # (Auto) Pierce # (Auto) Eos # (Auto) Baso # (Auto) Absolute Nucleated RBC Nucleated RBC % Manual Slide Review RBC Morph Micro Appear Sodium Potassium Chloride Carbon Dioxide Anion Gap BUN Creatinine Estimated GFR (MDRD) Glucose Calcium Total Bilirubin AST ALT Alkaline Phosphatase Total Protein Albumin Globulin Albumin/Globulin Ratio Lipase TSH Urine Color YELLOW Urine Clarity HAZY Urine pH 6.0 Ur Specific Forrest[place] 1.010 Urine Protein 30 H Urine Glucose (UA) NEGATIVE Urine Ketones NEGATIVE Urine Occult Blood TRACE-INTA Urine Nitrite POSITIVE H Urine Bilirubin NEGATIVE Urine Urobilinogen 0.2 (NORMAL) Ur Leukocyte Esterase SMALL H Urine RBC 0-5 Urine WBC >25 H Urine WBC Clumps PRESENT Ur Squamous Epith Cells FEW Squamous Urine Bacteria Few Ur Microscopic Review INDICATED Urine Culture Comments INDICATED - Rads (name of study) CT abd/pelvis Radiology: Prelim report reviewed, EMP read contemporaneously, See rad report (Striated left lower pole nephrogram suggest pyelonephritis. There is an ill- defined hypoenhancing 4.1 x 2.8 cm focus in the medial aspect of the left lower pole which is concerning for acute focal bacterial nephritis/early abscess formation. Renal cell carcinoma is less likely, however, recommend follow-up renal ultrasound 1 month after completion of medical therapy to ensure resolution. 2. Hepatomegaly. 3. Cholecystectomy. ) PD MEDICAL DECISION MAKING - ED course Complexity details: reviewed results, re-evaluated patient, considered differential, d/w patient, d/w family, d/w regional engagement consultant ED course: 43-year-old female with pyelonephritis. Significant leukocytosis. Started on IV antibiotics. Will admit to the hospitalist for further care. Consult with Dr. Soares, hospitalist who accepts This document was made in part using voice recognition software. While efforts are made to proofread this document, sound alike and grammatical errors may occur. Departure - Departure Disposition: [facility] DC/Xfer Clinical Impression: Pyelonephritis Leukocytosis Qualifiers: Leukocytosis type: unspecified Qualified Code(s): D72.829 - Elevated white blood cell count, unspecified Condition: Stable Discharge Date/Time: 12/20/18 16:13
[2018-12-20 12:52] LABS: BASOPHILS # (AUTO) 0.1 10^3/uL (0.0-0.1); BASOPHILS % (AUTO) 0.5 %; EOSINOPHILS # (AUTO) 0.1 10^3/uL (0.0-0.7); EOSINOPHILS % (AUTO) 0.4 %; HGB - HEMOGLOBIN 11.5 g/dL (12.0-16.0); LYMPHOCYTES # (AUTO) 1.5 10^3/uL (1.5-3.5); LYMPHOCYTES % (AUTO) 5.4 %; MEAN CORPUSCULAR HEMOGLOBIN 27.6 pg (27.0-31.0); MEAN CORPUSCULAR HGB CONC 33.8 g/dL (32.0-36.0); MEAN CORPUSCULAR VOLUME 81.5 fL (81.0-99.0); MEAN PLATELET VOLUME 10.7 fL (7.9-10.8); NEUTROPHILS # (AUTO) 24.4 10^3/uL (1.5-6.6); NEUTROPHILS % (AUTO) 85.1 %; PLT - PLATELET COUNT 330 10^3/uL (130-450); RED BLOOD COUNT 4.17 10^6/uL (4.20-5.40); RED CELL DISTRIBUTION WIDTH 16.7 % (12.0-15.0); WHITE BLOOD COUNT 28.7 x10^3/uL (4.8-10.8)
[2018-12-20 13:25] LABS: RBC MORPHOLOGY (MULTIPLE) 3+ ANISOCYTOSIS (NORMAL)
[2018-12-20 13:51] LABS: ALBUMIN 3.3 g/dL (3.2-5.5); ALBUMIN/GLOBULIN RATIO 0.7 (1.0-2.2); BILIRUBIN,TOTAL 0.6 mg/dL (0.2-1.0); CALCIUM 8.9 mg/dL (8.5-10.3); CREATININE 1.6 mg/dL (0.4-1.0); TOTAL PROTEIN 8.3 g/dL (6.7-8.2)
[2018-12-20 14:23] LABS: BILIRUBIN,URINE NEGATIVE (NEGATIVE); GLUCOSE, URINE (UA) NEGATIVE (NEGATIVE); KETONES,URINE (UA) NEGATIVE (NEGATIVE); LEUKOCYTE ESTERASE, URINE SMALL (NEGATIVE); NITRITE,URINE POSITIVE (NEGATIVE); OCCULT BLOOD,URINE TRACE-INTA (NEGATIVE); PROTEIN,URINE 30 mg/dL (NEGATIVE); UROBILINOGEN,URINE 0.2 (NORMAL) E.U./dL (NORMAL)
[2018-12-20 14:25] LABS: CLARITY,URINE HAZY (CLEAR)
[2018-12-20 14:44] LABS: BACTERIA,URINE Few /HPF (None Seen); RBC,URINE 0-5 /HPF (0-5); SQUAMOUS EPITHELIAL CELL,UR FEW Squamous (<= Few); WBC CLUMPS,URINE PRESENT
[2018-12-20] MEDS ORDERED: cefTRIAXone 1 GM VIAL IVP STA (15:10)
[2018-12-20] MEDS ORDERED: IBUPROFEN 600 MG TABLET PO PRN (15:28)
--- NOTE | 2018-12-20 15:37 | CT Report ---
Reason: abd pain Procedure Date: 12/20/2018 Accession Number: [id number] / [id number] Procedure: CT - Abdomen/Pelvis W CPT Code: FULL RESULT: EXAM: CT ABDOMEN AND PELVIS EXAM DATE: 12/20/2018 02:59 PM. CLINICAL HISTORY: Abdominal pain. COMPARISONS: ABDOMEN COMPLETE 09/01/2018 8:19 AM PELVIC W/TRANSVAGINAL 09/01/2018 7:42 AM. TECHNIQUE: Routine helical CT imaging was performed through the abdomen and pelvis. IV contrast: 100 cc Optiray 320. Enteric contrast: No. Reconstructions: Coronal and sagittal. In accordance with CT protocol optimization, one or more of the following dose reduction techniques were utilized for this exam: automated exposure control, adjustment of mA and/or KV based on patient size, or use of iterative reconstructive technique. FINDINGS: Images chest: Unremarkable. Liver: Enlarged but otherwise grossly normal. Gallbladder: Cholecystectomy. Biliary: Unremarkable. Pancreas: Unremarkable. Spleen: Unremarkable. Adrenal glands: Unremarkable. Kidneys: Striation of the left lower pole nephrogram. There is also an ill-defined 4.1 x 2.8 cm focus of non-enhancement within the medial aspect of the lower pole of the left kidney with obscuration of the corticomedullary junction and minimal adjacent fat stranding. There is also trace perinephric free fluid extending into the left retroperitoneum. Urinary bladder: Decompressed and not well evaluated. Reproductive organs: Unremarkable. Bowel: Unremarkable. Stomach: Thickening of the gastric antrum, likely secondary to underdistention. Appendix: Unremarkable. Miscellaneous: No free fluid. No extraluminal gas. Aorta: No significant aortic atherosclerosis. Normal in caliber. Lymph nodes: No pathologically enlarged lymph nodes identified. Bones: There are several old left-sided rib fracture deformities. No suspicious osseous lesions. Sidewalls: Unremarkable. IMPRESSION: 1. Striated left lower pole nephrogram suggest pyelonephritis. There is an ill-defined hypoenhancing 4.1 x 2.8 cm focus in the medial aspect of the left lower pole which is concerning for acute focal bacterial nephritis/early abscess formation. Renal cell carcinoma is less likely, however, recommend follow-up renal ultrasound 1 month after completion of medical therapy to ensure resolution. 2. Hepatomegaly. 3. Cholecystectomy. RADIA
[2018-12-20] MEDS ORDERED: LACTATED RINGERS 1,000 ML IV SCH (16:00)
[2018-12-20] MEDS ORDERED: IOVERSOL 320 100 ML VIAL IVP ONE ×2 (16:30→17:22)
[2018-12-20] MEDS: HYDROmorphone 1 MG/ML CARPUJECT IVP PRN ×2 (16:40→20:12)
[2018-12-20] MEDS: SODIUM CHLORIDE FLUSH 0.9% 10 ML SYRINGE IVP SCH (17:39)
[2018-12-20] MEDS: POTASSIUM CHLOR 10 MEQ/100 ML 10 MEQ/100 ML BAG IV SCH ×4 (18:20→22:18)
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
[2018-12-20] MEDS: ACETAMINOPHEN 325 MG TABLET PO PRN (20:12)
[2018-12-21] MEDS: ACETAMINOPHEN 325 MG TABLET PO PRN ×5 (00:08→23:06)
[2018-12-21] MEDS: PROCHLORPERAZINE 10 MG/2 ML VIAL IVP PRN ×3 (00:08→18:25)
[2018-12-21] MEDS: LACTATED RINGERS 1,000 ML IV SCH ×3 (00:08→19:23)
[2018-12-21] MEDS: HYDROmorphone 1 MG/ML CARPUJECT IVP PRN ×3 (00:09→20:47)
[2018-12-21] MEDS: SODIUM CHLORIDE FLUSH 0.9% 10 ML SYRINGE IVP SCH ×3 (00:09→17:07)
[2018-12-21] MEDS: SODIUM CHLORIDE FLUSH 0.9% 10 ML SYRINGE IVP PRN ×2 (00:09→18:27)
[2018-12-21 05:16] LABS: BASOPHILS % (AUTO) 0.5 %; EOSINOPHILS % (AUTO) 1.1 %; HGB - HEMOGLOBIN 9.3 g/dL (12.0-16.0); LYMPHOCYTES % (AUTO) 7.2 %; MEAN CORPUSCULAR HEMOGLOBIN 27.1 pg (27.0-31.0); MEAN CORPUSCULAR HGB CONC 33.1 g/dL (32.0-36.0); MEAN CORPUSCULAR VOLUME 81.9 fL (81.0-99.0); MEAN PLATELET VOLUME 10.4 fL (7.9-10.8); MONOCYTES % (AUTO) 8.4 %; NEUTROPHILS % (AUTO) 81.8 %; PLT - PLATELET COUNT 305 10^3/uL (130-450); RED BLOOD COUNT 3.43 10^6/uL (4.20-5.40); RED CELL DISTRIBUTION WIDTH 16.9 % (12.0-15.0); WHITE BLOOD COUNT 22.5 x10^3/uL (4.8-10.8)
[2018-12-21 05:28] LABS: CALCIUM 8.3 mg/dL (8.5-10.3); CREATININE 0.9 mg/dL (0.4-1.0); MAGNESIUM 2.1 mg/dL (1.7-2.8); PHOSPHORUS 3.4 mg/dL (2.5-4.6)
[2018-12-21 05:31] LABS: ABNORMAL LYMPHS % (MANUAL) 0 %; BAND NEUTROPHILS % (MANUAL) 0 %
[2018-12-21 06:19] LABS: BASOPHILS # (MANUAL) 0.2 10^3/uL (0-0.1); BASOPHILS % (MANUAL) 1 %; EOSINOPHILS # (MANUAL) 0.2 10^3/uL (0-0.7); LYMPHOCYTES # (MANUAL) 1.6 10^3/uL (1.5-3.5); LYMPHOCYTES % (MANUAL) 7 %; MONOCYTES # (MANUAL) 1.4 10^3/uL (0.0-1.0)
[2018-12-21 06:20] LABS: DIFFERENTIAL COMMENT MANUAL DIFFERENTIAL; PLATELET ESTIMATE, MANUAL NORMAL (130-450,000) (NORMAL); PLATELET MORPHOLOGY NORMAL APPEARANCE (NORMAL); RBC MORPHOLOGY (MULTIPLE) NORMAL APPEARANCE (NORMAL)
[2018-12-21] MEDS ORDERED: POTASSIUM CHLORIDE INJ 40 MEQ in SODIUM CHLORIDE 0.9% 480 ML IV ONE (07:13)
[2018-12-21] MEDS ORDERED: DICYCLOMINE 10 MG CAPSULE PO PRN (08:18)
[2018-12-21] MEDS: PANTOPRAZOLE 40 MG TABLET PO SCH (08:35)
[2018-12-21] MEDS: BACLOFEN 10 MG TABLET PO PRN ×3 (08:45→23:59)
[2018-12-21] MEDS: CITALOPRAM HYDROBROMIDE 20 MG TABLET PO SCH (10:46)
[2018-12-21] MEDS: METOCLOPRAMIDE 10 MG TABLET PO SCH ×3 (10:47→20:47)
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
--- NOTE | 2018-12-21 11:58 | PROVIDER PROGRESS NOTE ---
Subjective - Prog Note Date Prog Note Date: 12/21/18 Prog Note Time: 11:56 - Subjective Pt reports feeling: Improved Subjective: feels like her left side is "frozen" and stiff but not painful. Appetite ok. No fever, just sweats. wonders when we will resume her norvasc. Current Medications - Current Medications Current Medications: Active Medications Acetaminophen (Tylenol) 650 mg PO Q4HR PRN PRN Reason: Pain 1 to 4 Last Admin: 12/21/18 08:45 Dose: 650 mg Baclofen (Lioresal) 10 mg PO TID PRN PRN Reason: NEEDED PER PROVIDER ORDERS Last Admin: 12/21/18 08:45 Dose: 10 mg Citalopram Hydrobromide (Celexa) 30 mg PO DAILY [facility] Last Admin: 12/21/18 10:46 Dose: 30 mg Dicyclomine HCl (Bentyl) 10 mg PO TID PRN PRN Reason: ABDOMINAL CRAMPING Hydromorphone HCl (Dilaudid Inj Carp) 1 mg IVP Q2HR PRN PRN Reason: Pain 8 to 10 Last Admin: 12/21/18 06:04 Dose: 1 mg Ceftriaxone Sodium 1 gm/ (Sodium Chloride) 100 mls @ 200 mls/hr IV 1200 WILAD Lactated Ringer's (Lr) 1,000 mls @ 125 mls/hr IV .Q8H [facility] Last Admin: 12/21/18 08:14 Dose: 125 mls/hr Methylphenidate HCl (Ritalin) 20 mg PO 0700,1200,1700 WILDA Metoclopramide HCl (Reglan) 10 mg PO ACHS [facility] Last Admin: 12/21/18 10:47 Dose: 10 mg Pantoprazole Sodium (Protonix) 40 mg PO QDAC [facility] Last Admin: 12/21/18 08:35 Dose: 40 mg Prochlorperazine Edisylate (Compazine Inj) 10 mg IVP Q6HR PRN PRN Reason: Nausea / Vomiting Last Admin: 12/21/18 06:04 Dose: 10 mg Sodium Chloride (Normal Saline Flush 0.9%) 10 ml IVP PRN PRN PRN Reason: NEEDED PER PROVIDER ORDERS Last Admin: 12/21/18 00:09 Dose: 10 ml Sodium Chloride (Normal Saline Flush 0.9%) 10 ml IVP 0100,0900,1700 WILDA Last Admin: 12/21/18 06:04 Dose: 10 ml Acetaminophen 1 - 2 tab PO TID PRN 06/11/17 Baclofen 10 mg PO TID PRN 06/11/17 Cholecalciferol (Vitamin D3) [Vitamin D3] 1 cap PO DAILY 06/11/17 Citalopram Hydrobromide [Celexa] 30 mg PO DAILY 06/11/17 Ibuprofen 400 - 600 mg PO Q6HR PRN 06/11/17 Metformin HCl 500 mg PO DAILY 06/11/17 Methylphenidate HCl 20 mg PO TID 06/11/17 Multivitamin [Multiple Vitamins] 1 each PO DAILY 06/11/17 Omeprazole [PriLOSEC] 20 mg PO BID 06/11/17 Potassium Chloride [Klor-Con M20] 20 meq PO DAILY 06/11/17 Triamterene/Hydrochlorothiazid [Triamterene-Hctz 37.5-25 mg Tb] 1 each PO DAILY 06/11/17 Vitamin B Complex 1 each PO DAILY 06/11/17 Vitamin E 400 unit PO BID 06/11/17 amLODIPine [Norvasc] 10 mg PO DAILY 06/11/17 raNITIdine [Zantac] 150 mg PO DAILY PRN 06/11/17 Dicyclomine [Bentyl] 10 mg PO PRN PRN 12/20/18 Labetalol [Trandate] 100 mg PO TID 12/20/18 Metoclopramide [Reglan] 10 mg PO ACHS 12/20/18 Norgestimate-Ethinyl Estradiol [Tri-Sprintec Tablet] 1 tab PO DAILY 12/20/18 Objective - Vital Signs/Intake & Output Reviewed Vital Signs: Yes Vital Signs: Vital Signs x48h Temp Pulse Resp BP Pulse Ox 12/21/18 11:54 36.6 C 104 H 10 L 130/78 95 12/21/18 08:20 37.1 C 98 15 132/71 H 95 Intake & Output: Intake & Output 12/18/18 12/19/18 12/20/18 12/21/18 23:59 23:59 23:59 23:59 Intake Total 1923.5 2090 Output Total 750 1575 Balance 1173.5 515 - Objective General Appearance: positive: No acute distress, Alert, Other (sitting upright in bed and ate breakfast) Eyes Bilateral: positive: PERRL, EOMI ENT: positive: Pharynx nml Neck: positive: No JVD Respiratory: positive: Chest non-tender. negative: Wheezes, Rales, Rhonchi Cardiovascular: positive: Regular rate & rhythm. negative: Systolic murmur, Gallop/S4 Abdomen: positive: Non-tender, No organomegaly, Nml bowel sounds, No distention Skin: positive: Warm, Dry Extremities: positive: Full ROM, No pedal edema Neurologic/Psychiatric: positive: Oriented x3, CN's nml (2-12), Motor nml - Lab Results Fish Bones: 12/21/18 04:59 12/21/18 04:59 Other Labs: Lab Results x24hrs 12/21/18 12/21/18 12/20/18 Range/Units 04:59 04:59 15:30 WBC 22.5 H (4.8-10.8) x10^3/uL RBC 3.43 L (4.20-5.40) 10^6/uL Hgb 9.3 L (12.0-16.0) g/dL Hct 28.1 L (37.0-47.0) % MCV 81.9 (81.0-99.0) fL MCH 27.1 (27.0-31.0) pg MCHC 33.1 (32.0-36.0) g/dL RDW 16.9 H (12.0-15.0) % Plt Count 305 (130-450) 10^3/uL MPV 10.4 (7.9-10.8) fL Neut # (Auto) Not Reportable (1.5-6.6) 10^3/uL Lymph # (Auto) Not Reportable (1.5-3.5) 10^3/uL [place] # (Auto) Not Reportable (0.0-1.0) 10^3/uL Eos # (Auto) Not Reportable (0.0-0.7) 10^3/uL Baso # (Auto) Not Reportable (0.0-0.1) 10^3/uL Absolute Nucleated RBC Not Reportable x10^3/uL Total Counted 100 Band Neuts % (Manual) 0 (0 - 10) % Abnorm Lymph % (Manual) 0 % Nucleated RBC % Not Reportable /100WBC Neutrophils # (Manual) 19.1 H (1.5-6.6) 10^3/uL Lymphocytes # (Manual) 1.6 (1.5-3.5) 10^3/uL Monocytes # (Manual) 1.4 H (0.0-1.0) 10^3/uL Eosinophils # (Manual) 0.2 (0-0.7) 10^3/uL Basophils # (Manual) 0.2 H (0-0.1) 10^3/uL Differential Comment MANUAL DIFFERENTIAL Manual Slide Review WBC Morphology NORMAL APPEARANCE (NORMAL) Platelet Estimate NORMAL (130-450,000) (NORMAL) Platelet Morphology NORMAL APPEARANCE (NORMAL) RBC Morph Micro Appear NORMAL APPEARANCE (NORMAL) Sodium 134 L (135-145) mmol/L Potassium 2.6 L (3.5-5.0) mmol/L Chloride 98 L (101-111) mmol/L Carbon Dioxide 25 (21-32) mmol/L Anion Gap 11.0 (6-13) BUN 10 (6-20) mg/dL Creatinine 0.9 (0.4-1.0) mg/dL Estimated GFR (MDRD) 68 L (>89) Glucose 140 H (70-100) mg/dL Lactic Acid 0.5 (0.5-2.2) mmol/L Calcium 8.3 L (8.5-10.3) mg/dL Phosphorus 3.4 (2.5-4.6) mg/dL Magnesium 2.1 (1.7-2.8) mg/dL Total Bilirubin (0.2-1.0) mg/dL AST (10-42) IU/L ALT (10-60) IU/L Alkaline Phosphatase (42-121) IU/L Total Protein (6.7-8.2) g/dL Albumin (3.2-5.5) g/dL Globulin (2.1-4.2) g/dL Albumin/Globulin Ratio (1.0-2.2) Lipase (22-51) U/L TSH (0.34-5.60) uIU/mL Urine Color Urine Clarity (CLEAR) Urine pH (5.0-7.5) PH Ur Specific [place] (1.002-1.030) Urine Protein (NEGATIVE) mg/dL Urine Glucose (UA) (NEGATIVE) mg/dL Urine Ketones (NEGATIVE) mg/dL Urine Occult Blood (NEGATIVE) Urine Nitrite (NEGATIVE) Urine Bilirubin (NEGATIVE) Urine Urobilinogen (NORMAL) E.U./dL Ur Leukocyte Esterase (NEGATIVE) Urine RBC (0-5) /HPF Urine WBC (0-5) /HPF Urine WBC Clumps Ur Squamous Epith Cells (<= Few) Urine Bacteria (None Seen) /HPF Ur Microscopic Review Urine Culture Comments 12/20/18 12/20/18 12/20/18 Range/Units 14:09 12:43 12:43 WBC (4.8-10.8) x10^3/uL RBC (4.20-5.40) 10^6/uL Hgb (12.0-16.0) g/dL Hct (37.0-47.0) % MCV (81.0-99.0) fL MCH (27.0-31.0) pg MCHC (32.0-36.0) g/dL RDW (12.0-15.0) % Plt Count (130-450) 10^3/uL MPV (7.9-10.8) fL Neut # (Auto) (1.5-6.6) 10^3/uL Lymph # (Auto) (1.5-3.5) 10^3/uL [place] # (Auto) (0.0-1.0) 10^3/uL Eos # (Auto) (0.0-0.7) 10^3/uL Baso # (Auto) (0.0-0.1) 10^3/uL Absolute Nucleated RBC x10^3/uL Total Counted Band Neuts % (Manual) (0 - 10) % Abnorm Lymph % (Manual) % Nucleated RBC % /100WBC Neutrophils # (Manual) (1.5-6.6) 10^3/uL Lymphocytes # (Manual) (1.5-3.5) 10^3/uL Monocytes # (Manual) (0.0-1.0) 10^3/uL Eosinophils # (Manual) (0-0.7) 10^3/uL Basophils # (Manual) (0-0.1) 10^3/uL Differential Comment Manual Slide Review WBC Morphology (NORMAL) Platelet Estimate (NORMAL) Platelet Morphology (NORMAL) RBC Morph Micro Appear (NORMAL) Sodium 134 L (135-145) mmol/L Potassium 2.8 L (3.5-5.0) mmol/L Chloride 94 L (101-111) mmol/L Carbon Dioxide 25 (21-32) mmol/L Anion Gap 15.0 H (6-13) BUN 18 (6-20) mg/dL Creatinine 1.6 H (0.4-1.0) mg/dL Estimated GFR (MDRD) 35 L (>89) Glucose 138 H (70-100) mg/dL Lactic Acid (0.5-2.2) mmol/L Calcium 8.9 (8.5-10.3) mg/dL Phosphorus (2.5-4.6) mg/dL Magnesium (1.7-2.8) mg/dL Total Bilirubin 0.6 (0.2-1.0) mg/dL AST 16 (10-42) IU/L ALT 15 (10-60) IU/L Alkaline Phosphatase 96 (42-121) IU/L Total Protein 8.3 H (6.7-8.2) g/dL Albumin 3.3 (3.2-5.5) g/dL Globulin 5.0 H (2.1-4.2) g/dL Albumin/Globulin Ratio 0.7 L (1.0-2.2) Lipase 14 L (22-51) U/L TSH 4.07 (0.34-5.60) uIU/mL Urine Color YELLOW Urine Clarity HAZY (CLEAR) Urine pH 6.0 (5.0-7.5) PH Ur Specific [place] 1.010 (1.002-1.030) Urine Protein 30 H (NEGATIVE) mg/dL Urine Glucose (UA) NEGATIVE (NEGATIVE) mg/dL Urine Ketones NEGATIVE (NEGATIVE) mg/dL Urine Occult Blood TRACE-INTA (NEGATIVE) Urine Nitrite POSITIVE H (NEGATIVE) Urine Bilirubin NEGATIVE (NEGATIVE) Urine Urobilinogen 0.2 (NORMAL) (NORMAL) E.U./dL Ur Leukocyte Esterase SMALL H (NEGATIVE) Urine RBC 0-5 (0-5) /HPF Urine WBC >25 H (0-5) /HPF Urine WBC Clumps PRESENT Ur Squamous Epith Cells FEW Squamous (<= Few) Urine Bacteria Few (None Seen) /HPF Ur Microscopic Review INDICATED Urine Culture Comments INDICATED 12/20/18 Range/Units 12:43 WBC 28.7 H (4.8-10.8) x10^3/uL RBC 4.17 L (4.20-5.40) 10^6/uL Hgb 11.5 L (12.0-16.0) g/dL Hct 34.0 L (37.0-47.0) % MCV 81.5 (81.0-99.0) fL MCH 27.6 (27.0-31.0) pg MCHC 33.8 (32.0-36.0) g/dL RDW 16.7 H (12.0-15.0) % Plt Count 330 (130-450) 10^3/uL MPV 10.7 (7.9-10.8) fL Neut # (Auto) 24.4 H (1.5-6.6) 10^3/uL Lymph # (Auto) 1.5 (1.5-3.5) 10^3/uL [place] # (Auto) 2.0 H (0.0-1.0) 10^3/uL Eos # (Auto) 0.1 (0.0-0.7) 10^3/uL Baso # (Auto) 0.1 (0.0-0.1) 10^3/uL Absolute Nucleated RBC 0.00 x10^3/uL Total Counted Band Neuts % (Manual) (0 - 10) % Abnorm Lymph % (Manual) % Nucleated RBC % 0.0 /100WBC Neutrophils # (Manual) (1.5-6.6) 10^3/uL Lymphocytes # (Manual) (1.5-3.5) 10^3/uL Monocytes # (Manual) (0.0-1.0) 10^3/uL Eosinophils # (Manual) (0-0.7) 10^3/uL Basophils # (Manual) (0-0.1) 10^3/uL Differential Comment Manual Slide Review Indicated WBC Morphology (NORMAL) Platelet Estimate (NORMAL) Platelet Morphology (NORMAL) RBC Morph Micro Appear 3+ ANISOCYTOSIS (NORMAL) Sodium (135-145) mmol/L Potassium (3.5-5.0) mmol/L Chloride (101-111) mmol/L Carbon Dioxide (21-32) mmol/L Anion Gap (6-13) BUN (6-20) mg/dL Creatinine (0.4-1.0) mg/dL Estimated GFR (MDRD) (>89) Glucose (70-100) mg/dL Lactic Acid (0.5-2.2) mmol/L Calcium (8.5-10.3) mg/dL Phosphorus (2.5-4.6) mg/dL Magnesium (1.7-2.8) mg/dL Total Bilirubin (0.2-1.0) mg/dL AST (10-42) IU/L ALT (10-60) IU/L Alkaline Phosphatase (42-121) IU/L Total Protein (6.7-8.2) g/dL Albumin (3.2-5.5) g/dL Globulin (2.1-4.2) g/dL Albumin/Globulin Ratio (1.0-2.2) Lipase (22-51) U/L TSH (0.34-5.60) uIU/mL Urine Color Urine Clarity (CLEAR) Urine pH (5.0-7.5) PH Ur Specific [place] (1.002-1.030) Urine Protein (NEGATIVE) mg/dL Urine Glucose (UA) (NEGATIVE) mg/dL Urine Ketones (NEGATIVE) mg/dL Urine Occult Blood (NEGATIVE) Urine Nitrite (NEGATIVE) Urine Bilirubin (NEGATIVE) Urine Urobilinogen (NORMAL) E.U./dL Ur Leukocyte Esterase (NEGATIVE) Urine RBC (0-5) /HPF Urine WBC (0-5) /HPF Urine WBC Clumps Ur Squamous Epith Cells (<= Few) Urine Bacteria (None Seen) /HPF Ur Microscopic Review Urine Culture Comments ABX Reporting Has patient been on IV antibiotics over the past 48 hours?: Yes Assessment/Plan - Problem List (1) Pyelonephritis Impression: Presented with severe nausea in a patient who has chronic nausea from GERD Increased over the last few days. She was scheduled to have a CT of the abdomen by her primary care provider on the day of admission. But she had worsened so much that she came to the emergency room instead. She was found to have nausea, body aches, fever and chills. Fever was not present. White cell count was 28,000. CT of the abdomen showed left-sided pyelonephritis and a possible kidney abscess. Since her admission yesterday, she has not had a fever. She was consistently with a low blood pressure of 105-110 systolic. White cell count is 22,000 today. And her urine cultures growing E. coli. Because her kidney showed a possible abscess, an MRI was ordered for today. She has an old kidney laceration from a horse injury. Today's MRI shows a right kidney that is essentially normal. The left kidney has patchy striated mid and lower left kidney area with enlargement of the lower pole. No definitive evidence for abscess noted. Plan: Day #2 of Rocephin. Plan for 7 to 10 days of antibiotic therapy there is both oral and IV. Review blood cultures when available. This will change length of therapy. (2) DEANDRE (acute kidney injury) Impression: creat was 1.6 and now 0.9 with IVF (3) Hypokalemia Impression: still present even after supplimentation with IV K. Will give more K today. (4) Anemia Impression: present off and on in EMR since 2017 Plan: check anemia panel Qualifiers: Anemia type: unspecified type Qualified Code(s): D64.9 - Anemia, unspeci fied (5) GERD (gastroesophageal reflux disease) Impression: she would like prilosec resume. Not on formulary. Resume with protonix. Qualifiers: Esophagitis presence: without esophagitis Qualified Code(s): K21.9 - Gastro-esophageal reflux disease without esophagitis
[2018-12-21] MEDS: cefTRIAXone 1 GM in SODIUM CHLORIDE 0.9% MINIBAG 100 ML IV SCH (12:25)
[2018-12-21] MEDS: METHYLPHENIDATE 10 MG TABLET PO SCH ×2 (12:43→17:04)
[2018-12-21 15:12] LABS: ABSOLUTE RETICS # AUTO 0.019 10^6/uL (0.020-0.110); RED BLOOD COUNT 3.43 10^6/uL (4.20-5.40)
[2018-12-21 15:27] LABS: % IRON SATURATION 4 % (20-50); IRON 8 ug/dL (28-170); TOTAL IRON BINDING CAPACITY 213 ug/dL (250-450); TRANSFERRIN 152 mg/dL (192-382)
[2018-12-21 15:41] LABS: FERRITIN 115.4 ng/mL (11.0-306.8)
[2018-12-22] MEDS: SODIUM CHLORIDE FLUSH 0.9% 10 ML SYRINGE IVP SCH ×3 (01:44→17:02)
[2018-12-22] MEDS: OXYMETAZOLINE HCL 100 SPRAYS BOTTLE NAS PRN (02:37)
[2018-12-22] MEDS: LACTATED RINGERS 1,000 ML IV SCH (02:39)
[2018-12-22] MEDS: ACETAMINOPHEN 325 MG TABLET PO PRN ×5 (03:13→23:54)
[2018-12-22 05:45] LABS: BASOPHILS % (AUTO) 0.2 %; EOSINOPHILS # (AUTO) 0.2 10^3/uL (0.0-0.7); EOSINOPHILS % (AUTO) 1.3 %; HGB - HEMOGLOBIN 8.8 g/dL (12.0-16.0); LYMPHOCYTES # (AUTO) 2.3 10^3/uL (1.5-3.5); LYMPHOCYTES % (AUTO) 12.8 %; MEAN CORPUSCULAR HEMOGLOBIN 26.9 pg (27.0-31.0); MEAN CORPUSCULAR HGB CONC 32.8 g/dL (32.0-36.0); MEAN PLATELET VOLUME 10.1 fL (7.9-10.8); MONOCYTES # (AUTO) 1.3 10^3/uL (0.0-1.0); MONOCYTES % (AUTO) 7.1 %; NEUTROPHILS % (AUTO) 77.1 %; PLT - PLATELET COUNT 335 10^3/uL (130-450); RED BLOOD COUNT 3.27 10^6/uL (4.20-5.40); RED CELL DISTRIBUTION WIDTH 16.8 % (12.0-15.0); WHITE BLOOD COUNT 18.1 x10^3/uL (4.8-10.8)
[2018-12-22 05:54] LABS: CALCIUM 8.5 mg/dL (8.5-10.3); CREATININE 0.7 mg/dL (0.4-1.0); PHOSPHORUS 2.6 mg/dL (2.5-4.6)
[2018-12-22] MEDS: METHYLPHENIDATE 10 MG TABLET PO SCH ×3 (06:11→17:01)
[2018-12-22] MEDS: METOCLOPRAMIDE 10 MG TABLET PO SCH ×4 (06:12→20:27)
[2018-12-22] MEDS: PANTOPRAZOLE 40 MG TABLET PO SCH (06:12)
[2018-12-22] MEDS: POTASSIUM CHLOR 10 MEQ/100 ML 10 MEQ/100 ML BAG IV SCH ×6 (07:09→23:16)
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
[2018-12-22] MEDS: HYDROmorphone 1 MG/ML CARPUJECT IVP PRN ×3 (08:22→23:45)
[2018-12-22] MEDS: SACCHAROMYCES BOULARDII 250 MG CAPSULE PO SCH ×2 (08:25→17:02)
[2018-12-22] MEDS: POTASSIUM CHLORIDE 20 MEQ TABLET PO SCH ×3 (08:25→17:02)
[2018-12-22] MEDS: CITALOPRAM HYDROBROMIDE 20 MG TABLET PO SCH (08:25)
[2018-12-22] MEDS: amLODIPine 5 MG TABLET PO SCH (08:26)
[2018-12-22] MEDS: BACLOFEN 10 MG TABLET PO PRN ×3 (09:19→23:44)
[2018-12-22] MEDS: cefTRIAXone 1 GM in SODIUM CHLORIDE 0.9% MINIBAG 100 ML IV SCH (11:47)
[2018-12-22] MEDS: SODIUM CHLORIDE FLUSH 0.9% 10 ML SYRINGE IVP PRN ×2 (13:41→14:21)
[2018-12-22] MEDS ORDERED: POTASSIUM CHLOR 10 MEQ/100 ML 10 MEQ/100 ML BAG IV ONE (17:14)
[2018-12-22] MEDS ORDERED: DIPHENOX/ATROPINE 2.5/0.025 MG TABLET PO PRN (18:57)
[2018-12-22] MEDS: CIPROFLOXACIN 250 MG TABLET PO SCH (20:27)
[2018-12-23] MEDS: OXYMETAZOLINE HCL 100 SPRAYS BOTTLE NAS PRN
[2018-12-23 05:15] LABS: BASOPHILS % (AUTO) 0.4 %; EOSINOPHILS % (AUTO) 2.8 %; HGB - HEMOGLOBIN 9.3 g/dL (12.0-16.0); LYMPHOCYTES % (AUTO) 17.1 %; MEAN CORPUSCULAR HEMOGLOBIN 26.9 pg (27.0-31.0); MEAN CORPUSCULAR VOLUME 84.1 fL (81.0-99.0); MEAN PLATELET VOLUME 9.8 fL (7.9-10.8); MONOCYTES % (AUTO) 5.9 %; NEUTROPHILS % (AUTO) 68.8 %; PLT - PLATELET COUNT 394 10^3/uL (130-450); RED BLOOD COUNT 3.46 10^6/uL (4.20-5.40); RED CELL DISTRIBUTION WIDTH 16.8 % (12.0-15.0); WHITE BLOOD COUNT 13.1 x10^3/uL (4.8-10.8)
[2018-12-23 05:18] LABS: ABNORMAL LYMPHS % (MANUAL) 0 %
[2018-12-23 05:19] LABS: CALCIUM 8.8 mg/dL (8.5-10.3); CREATININE 0.6 mg/dL (0.4-1.0); MAGNESIUM 1.9 mg/dL (1.7-2.8); PHOSPHORUS 3.4 mg/dL (2.5-4.6)
[2018-12-23 05:38] LABS: BAND NEUTROPHILS % (MANUAL) 2 %; DIFFERENTIAL COMMENT MANUAL DIFFERENTIAL; LYMPHOCYTES # (MANUAL) 1.2 10^3/uL (1.5-3.5); LYMPHOCYTES % (MANUAL) 9 %; MONOCYTES # (MANUAL) 0.3 10^3/uL (0.0-1.0); PLATELET ESTIMATE, MANUAL NORMAL (130-450,000) (NORMAL); RBC MORPHOLOGY (MULTIPLE) NORMAL APPEARANCE (NORMAL)
[2018-12-23] MEDS: PANTOPRAZOLE 40 MG TABLET PO SCH (06:33)
[2018-12-23] MEDS: METHYLPHENIDATE 10 MG TABLET PO SCH ×2 (06:33→12:02)
[2018-12-23] MEDS: METOCLOPRAMIDE 10 MG TABLET PO SCH ×2 (06:33→11:29)
[2018-12-23] MEDS: ACETAMINOPHEN 325 MG TABLET PO PRN ×2 (06:47→10:46)
[2018-12-23] MEDS: CIPROFLOXACIN 250 MG TABLET PO SCH (08:08)
[2018-12-23] MEDS: BACLOFEN 10 MG TABLET PO PRN (08:08)
[2018-12-23] MEDS: CITALOPRAM HYDROBROMIDE 20 MG TABLET PO SCH (08:09)
[2018-12-23] MEDS: POTASSIUM CHLORIDE 20 MEQ TABLET PO SCH (08:09)
[2018-12-23] MEDS: amLODIPine 5 MG TABLET PO SCH (08:09)
[2018-12-23] MEDS ORDERED: A & D OINTMENT 5 GM PACKET TOP PRN (08:16)
--- NOTE | 2018-12-23 08:26 | Discharge Plan ---
Discharge Plan Problem Reviewed?: Yes Disposition: Home, Self Care Condition: Stable Prescriptions: Ciprofloxacin [Cipro] 500 mg PO BID #12 tablet Diet: Regular Activity Restrictions: Activity as Tolerated Shower Restrictions: No Driving Restrictions: No Health Concerns: 1.You presented to our hospital with nausea, generalized abdominal aching, fever, body aches. You already have a long history of chronic nausea with numerous visits to your doctor's office for that in the past few years. You had already seen Dr. Manley and he had ordered a CT of the abdomen to evaluate your most recent episode of nausea. But it had become so bad you came to the hospital first. The CT of the abdomen in the emergency room showed you to have a kidney infection called pyelonephritis. Your white cell count was 28,000. But you did not have a fever. Your blood pressure was low. We treated you with antibiotics to treat the infection in your kidney and your white cell count is come from 28,000 down to 13,000. Normal is 10,000. We would like you to be below 10,000. We did an MRI of your kidney to make sure there was no abscess there, and you have old scar tissue from an old injury. 2. While here your potassium was very low. We think it was from the loose stools were having from antibiotics. Your potassium is now normal at discharge. 3. While here we also found you to have anemia. A normal amount of blood in a woman is 12 g of hemoglobin. You went down to 8.8. You have iron deficiency anemia. 4. Diarrhea or loose stool occurred while on antibiotics. We did check and you stool has no blood and you are Clostridium deficile negative. Plan of Treatment: 1. You will need to complete your antibiotic therapy for the kidney infection. Your urine culture grew out a bacteria called E. coli. The antibiotic you will complete therapy with his ciprofloxacin, 1 tablet twice a day for the next 6 days. 2. Because you have iron deficiency anemia, which is anemia of blood loss, please see your primary care provider in follow-up to see what further work-up you need. You may need an upper and lower endoscopy looking for gastric blood loss. Very rarely, iron deficiency anemia can also be because of nutritional deficiency. But you have no diseases or surgeries that would give you nutritional deficiency. You will be sent home on iron replacement therapy for the next month. You can discuss with Dr. Manley whether to continue it after that time. 3. you have asked to be off work since you are not still feeling back to normal, and I will release you to go back to work 12/29/18. Care Goals: To complete therapy for your kidney infection. And to find out why you have iron deficiency anemia. Assessment: Discussed with patient at discharge, and goals understood, patient will follow through. No Smoking: If you smoke, Please STOP! Call for help. Follow-up with: Vickey Manley MD [Primary Care Provider] -
[2018-12-23 11:29] VITALS: BP 137/88
--- NOTE | 2018-12-23 11:55 | DISCHARGE SUMMARY ---
Discharge Summary Admit Date: 12/20/18 Discharge Date: 12/23/18 Discharging Provider: Missy Vargas MD Primary Care Provider: Vickey Manley MD Code Status: Attempt Resuscitation Condition at Discharge: Stable Discharge Disposition: 01 Home, Self Care - DIAGNOSES Discharge Diagnoses with Status of Each Condition: 1. Pyelonephritis, left kidney 2. E. coli UTI 3. Acute kidney injury 4. Hypokalemia 5. Drug-induced diarrhea 6. Iron deficiency anemia 7. Gastroesophageal reflux disease 8. Hypertension - HPI History of Present Illness: 43-year-old white female who is been having intermittent abdominal pain since August 2018. Treatment has consisted of urinary tract infection treatment, pelvic ultrasound, [id number] Prilosec, Zantac, and EGD with general surgery, and a schedule CT of the abdomen for December 20. She finally presented to our emergency room when nausea, and abdominal pain were now associated with all over body aches. "She could not take it anymore". She denied fever, chills. No coughing. No diarrhea. She was, however, urinating more frequently than usual. She was seen in the emergency room by Dr. Lozada. She was afebrile, mildly hypotensive at 105/64. O2 sat was 100% on room air. Abdominal exam was negative. However, white cell count was 28,000, hypokalemic at 2.8, and urinalysis had nitrites, trace occult blood, small leukocyte Estrace, many white cells, few squamous cells, and few bacteria. Creatinine was newly elevated at 1.6. CT of the abdomen was done and showed her to have dilated calyces in the left kidney, and possible fluid retention that was possibly an abscess. - CONSULTS | PROCEDURES Procedures: 1. Abdomen pelvis CT. Liver is enlarged but otherwise grossly normal. She has a cholecystectomy. Striation of the left upper pole of her kidney on nephrogram. Also an ill-defined 4.1 x 2.8 cm focus of non-enhancement within the medial aspect of the lower pole of the left kidney. There is obscuration of the corticomedullary junction and minimal adjacent fat stranding. There is also trace perinephric free fluid extending into the left retroperitoneum. Thickening of the gastric antrum most likely secondary to under distention. There are several old left-sided rib fracture deformities. 2. Abdomen MRI shows the same cholecystectomy. Fatty liver that is enlarged. Right kidney normal. Left kidney showing striated mid and lower left kidney noted on recent CT with enlargement of the lower pole of the left kidney. There are patchy mixed areas of peripheral slightly increased T2 and low more central T2 signal intensity areas with associated striated appearance. There is left perinephric edema along the mid and lower pole of the left kidney. No contrast so there is no certain optimal detail for abscess but there really is no abscess seen with no definitive evidence noted. 3. Urine culture with E. coli that is pansensitive 4. Blood cultures that are negative. - HOSPITAL COURSE Hospital Course: The patient was admitted as pyelonephritis. Because she had previous injury with a horse many years ago, she had left rib fractures and a kidney laceration that healed without surgical intervention. It was not clear if the patient had an abnormality on CT nephrogram from abscess or old scar tissue. She was started on empiric antibiotic therapy with ceftriaxone. MRI of the kidney was done and showed that it was scar tissue no abscess. Cultures of her urine grew out E. coli that was pansensitive. Blood cultures were negative. As such she was transitioned from IV antibiotics to oral antibiotics in the form of ciprofloxacin. White cell count started at 28,000 and admission was down to 13,000 on the day of discharge. Throughout her stay the patient did not have any fever. Blood pressure was initially low. As such her blood pressure medicines were held until 2 days before discharge and they were resumed. At the time of disc harge blood pressure was 137/88. Nausea and pain were constant for her. She has diffuse body aches. It appears to be a constant complaint in the review of her chart. That is her outpatient chart. She did receive sparing treatment with Dilaudid. This would be about once or twice a day. By discharge it was strongly encouraged that she control her pain with Motrin and Tylenol. She did have frequent loose stools because of antibiotic therapy. C. difficile was negative and stool for fecal occult blood was negative. Treatment was Lomotil. During her stay her hemoglobin did drop. She started at 11.5 and dropped to as low as 8.8. At discharge she was 9.3. Evaluation showed her to have severe iron deficiency anemia that was new. Review of her chart with her primary care provider showed her to have normal iron levels and borderline anemia in the past. Iron during this stay was 8, TIBC 213, percent saturation 4%, transferrin 152, ferritin 115, LDH 109, vitamin B12 1569 and TSH was 4.07. Reticulocyte count was 0.54%. She is started on oral iron replacement therapy. I have asked her to buy that [id number]. But she will need follow-up with her primary care provider to find out why she has iron deficiency anemia. She just had an EGD with Dr. Luz Paulson this summer and her EGD was negative for severe ulcer or gastritis. Acute kidney injury resolved. Her admission creatinine was 1.6. With IV fluids, hydration, and treatment of her infection her creatinine came back down to 0.6. Discharge examination showed a temperature of 36.6, pulse 85, blood pressure 137/88. Respirations were 16 and unlabored and she was 97% on room air. She is a 4 foot 11 female who weighs 87.5 kg. General exam was that of a flat affect, and had down ache female. No acute distress with good generalized body mass. Neck was supple, lungs were clear to auscultation and percussion. PMI was normally placed. No murmurs rubs or gallops. The abdomen was obese, soft, nontender. Normal bowel sounds. There was some achiness over the left flank and left rib cage that were produced with percussion and palpation but not at rest. Extremities were without clubbing cyanosis or edema. She is independently mobile within her room and able to get up out of bed, go to the bathroom. She was eating 100% and down to 25% of her foods depending on if she liked her meals. She has asked if she could not to go back to work until next Thursday, December 29. As such, I have written her a note for that. Greater than 30 minutes was spent coordinating discharge. She is asked to follow-up with her primary care provider, Vickey Manley. She will need to be followed up for her iron deficiency anemia. - ALLERGIES Allergies/Adverse Reactions: Allergies Allergy/AdvReac Type Severity Reaction Status Date / Time bupropion Allergy Unknown Verified 10/04/17 13:46 doxycycline Allergy Hives Verified 10/04/17 13:46 metronidazole Allergy Hives Verified 10/04/17 13:46 Sulfa (Sulfonamide Allergy Unknown Verified 10/04/17 13:46 Antibiotics) - MEDICATIONS Home Medications: Ambulatory Orders Medication Instructions Recorded Confirmed RX: Acetaminophen 1 - 2 tab PO TID PRN 06/11/17 12/20/18 RX: Baclofen 10 mg PO TID PRN 06/11/17 12/20/18 RX: Cholecalciferol (Vitamin D3) 1 cap PO DAILY 06/11/17 12/20/18 [Vitamin D3] RX: Citalopram Hydrobromide 30 mg PO DAILY 06/11/17 12/20/18 [Celexa] RX: Ibuprofen 400 - 600 mg PO Q6HR PRN 06/11/17 12/20/18 RX: Metformin HCl 500 mg PO DAILY 06/11/17 12/20/18 RX: Methylphenidate HCl 20 mg PO TID 06/11/17 12/20/18 RX: Multivitamin [Multiple 1 each PO DAILY 06/11/17 12/20/18 Vitamins] RX: Omeprazole [PriLOSEC] 20 mg PO BID 06/11/17 12/20/18 RX: Potassium Chloride [Klor-Con 20 meq PO DAILY 06/11/17 12/20/18 M20] RX: Triamterene/Hydrochlorothiazid 1 each PO DAILY 06/11/17 12/20/18 [Triamterene-Hctz 37.5-25 mg Tb] RX: Vitamin B Complex 1 each PO DAILY 06/11/17 12/20/18 RX: Vitamin E 400 unit PO BID 06/11/17 12/20/18 RX: amLODIPine [Norvasc] 10 mg PO DAILY 06/11/17 12/20/18 RX: raNITIdine [Zantac] 150 mg PO DAILY PRN 06/11/17 12/20/18 RX: Dicyclomine [Bentyl] 10 mg PO PRN PRN 12/20/18 12/20/18 RX: Labetalol [Trandate] 100 mg PO TID 12/20/18 12/20/18 RX: Metoclopramide [Reglan] 10 mg PO ACHS 12/20/18 12/20/18 RX: Norgestimate-Ethinyl Estradiol 1 tab PO DAILY 12/20/18 12/20/18 [Tri-Sprintec Tablet] RX: Ciprofloxacin [Cipro] 500 mg PO BID #12 tablet 12/23/18 - LABS Result Diagrams: 12/23/18 04:35 12/23/18 04:35 - TIME SPENT Time Spent in Discharge (Minutes): 35
== END 2018-12-23 13:25 | disposition home or self-care (01) | DRG 690 ==
LOC: ED 11:50 → MS2 15:28
PROVIDERS: ADMIT Internal Medicine; ATTEND Specialist
DX: N12 Tubulo-interstitial nephritis, not specified as acute or chronic (principal); K52.1 Toxic gastroenteritis and colitis; N15.1 Renal and perinephric abscess; N17.9 Acute kidney failure, unspecified; B96.20 Unspecified Escherichia coli [E. coli] as the cause of diseases classified elsewhere; E87.6 Hypokalemia; D50.9 Iron deficiency anemia, unspecified; T36.95XA Adverse effect of unspecified systemic antibiotic, initial encounter; Y92.230 Patient room in hospital as the place of occurrence of the external cause; K21.9 Gastro-esophageal reflux disease without esophagitis; I10 Essential (primary) hypertension; K44.9 Diaphragmatic hernia without obstruction or gangrene; F32.9 Major depressive disorder, single episode, unspecified; F41.9 Anxiety disorder, unspecified; G89.29 Other chronic pain; M54.9 Dorsalgia, unspecified; K76.0 Fatty (change of) liver, not elsewhere classified; J45.909 Unspecified asthma, uncomplicated; R11.0 Nausea; H54.7 Unspecified visual loss; F90.9 Attention-deficit hyperactivity disorder, unspecified type; Z90.49 Acquired absence of other specified parts of digestive tract; Z87.891 Personal history of nicotine dependence; Z87.828 Personal history of other (healed) physical injury and trauma
CPT/HCPCS: 36415; 74177; 74181; 80048; 80053; 81001; 82274; 82607; 82728; 83540; 83605; 83615; 83690; 83735; 84100; 84443; 84466; 85025; 85044; 87040; 87086; 87181; 87493; 96365; 96375; 99284; 99285; A9270; J1170; J1200; J7040; J7120; J8499; Q9967; 81003

== ENCOUNTER 2018-12-28 08:00 | Outpatient (CLI) | payer OTHER, BC ==
[2018-12-28 19:13] LABS: ABSOLUTE RETICS # AUTO 0.077 10^6/uL (0.020-0.110); RED BLOOD COUNT 3.86 10^6/uL (4.20-5.40)
[2018-12-28 19:16] LABS: % IRON SATURATION 8 % (20-50); IRON 32 ug/dL (28-170); TOTAL IRON BINDING CAPACITY 395 ug/dL (250-450); TRANSFERRIN 282 mg/dL (192-382)
[2018-12-28 19:31] LABS: FERRITIN 70.7 ng/mL (11.0-306.8)
[2018-12-28 19:35] LABS: FOLATE 12.16 ng/mL (5.90 - >24.8)
== END 2018-12-28 23:59 | disposition home or self-care (01) ==
LOC: LAB.WCP 08:00
PROVIDERS: ATTEND Family Medicine
DX: D50.9 Iron deficiency anemia, unspecified (principal)
CPT/HCPCS: 36415; 82607; 82728; 82746; 83540; 84466; 85044

== ENCOUNTER 2018-12-30 17:24 | Outpatient (CLI) | payer OTHER, BC ==
[2018-12-30 18:18] LABS: HB2 TOTAL 11.1 g/dL; HEMOGLOBIN A1C 0.49 g/dL; HEMOGLOBIN A1C % 6.2 % (4.6-6.2)
[2018-12-30 19:04] LABS: THYROID STIMULATING HORMONE 1.62 uIU/mL (0.34-5.60)
[2018-12-30 19:10] LABS: PROLACTIN 63.32 ng/mL
[2018-12-30 19:33] LABS: FOLLICLE STIMULATING HORMONE 0.37 mIU/mL
[2018-12-30 19:35] LABS: LUTEINIZING HORMONE < 0.20 mIU/mL
== END 2018-12-30 17:25 | disposition home or self-care (01) ==
LOC: LAB 17:24
PROVIDERS: ATTEND Obstetrics & Gynecology
DX: E28.2 Polycystic ovarian syndrome (principal)
CPT/HCPCS: 36415; 81599; 82670; 83001; 83002; 83036; 83498; 84146; 84402; 84403; 84443

== ENCOUNTER 2019-01-04 14:46 | Outpatient (CLI) | payer OTHER, BC ==
[2019-01-04 15:06] LABS: MEAN CORPUSCULAR HEMOGLOBIN 27.2 pg (27.0-31.0); MEAN CORPUSCULAR VOLUME 85.1 fL (81.0-99.0); RED BLOOD COUNT 4.04 10^6/uL (4.20-5.40); RED CELL DISTRIBUTION WIDTH 17.1 % (12.0-15.0); WHITE BLOOD COUNT 7.8 x10^3/uL (4.8-10.8)
[2019-01-04 15:22] LABS: CREATININE 0.7 mg/dL (0.4-1.0)
== END 2019-01-04 14:47 | disposition home or self-care (01) ==
LOC: LAB 14:46
PROVIDERS: ATTEND Obstetrics & Gynecology
DX: E22.1 Hyperprolactinemia (principal)
CPT/HCPCS: 36415; 82565; 85027

== ENCOUNTER 2019-01-19 14:48 | Outpatient (CLI) | payer OTHER, BC ==
[2019-01-19] MEDS ORDERED: GADOBUTROL 10 MMOL/10 ML VIAL ONE (15:43)
[2019-01-19] MEDS ORDERED: GADOBUTROL 10 MMOL/10 ML VIAL IVP ONE (16:16)
--- NOTE | 2019-01-19 19:35 | MRI Report ---
Reason: HYPERPROLACTINEMIA Procedure Date: 01/19/2019 Accession Number: [id number] / [id number] Procedure: MRI - Brain W/WO CPT Code: FULL RESULT: EXAM: MRI BRAIN AND PITUITARY WITHOUT AND WITH CONTRAST. EXAM DATE: 01/19/2019 04:00 PM. CLINICAL HISTORY: 43-year-old female. HYPERPROLACTINEMIA. COMPARISON: None. TECHNIQUE: Multiplanar, multisequence T1-weighted and fluid-sensitive MR sequences of the brain and pituitary were performed before and after administration of intravenous contrast. Other: None. IV Contrast: 8.5 ML Gadavist. FINDINGS: Brain Volume: Normal for age. Parenchyma: No masses, infarcts, or hemorrhage. No white matter lesions identified. No abnormal enhancement. Pituitary: 3 mm craniocaudally x 11.1 mm AP x 12.7 mm transversely. As well seen only on sagittal imaging (as coronal images skip over the lesion), there is a suggestion of 3 mm focus of hypoenhancement within the sellar floor at midline (series 1201 image 6). This is nonspecific but possibility of a pituitary lesion such as microadenoma not excluded. The superior margin is concave. The pituitary stalk is normal in thickness. The adjacent parasellar structures are within normal limits. Ventricles/Cisterns: No hydrocephalus. No abnormal extra-axial fluid collection or hemorrhage. Orbits: Symmetric and unremarkable. IAC: Symmetric and unremarkable. Vasculature: Normal signal flow void is seen in the major arterial structures at the skull base. The dural sinuses are patent and enhance normally. Sinuses: No acute sinus disease. Bones: No focal pathologic appearing marrow signal changes. Other: None. IMPRESSION: 1. As well seen only on sagittal imaging (as coronal images skip over the lesion), there is a suggestion of 3 mm focus of hypoenhancement within the sellar floor at midline (series 1201 image 6). This is nonspecific but possibility of a pituitary lesion such as microadenoma not excluded. 2. Unremarkable MRI examination of the brain parenchyma. RADIA
== END 2019-01-19 14:49 | disposition home or self-care (01) ==
LOC: DI 14:48
PROVIDERS: ATTEND Obstetrics & Gynecology
DX: E22.1 Hyperprolactinemia (principal)
CPT/HCPCS: 70553; A9585

== ENCOUNTER 2019-05-11 08:00 | Outpatient (CLI) | payer OTHER | END 2019-05-11 23:59 | disposition home or self-care (01) | LOC: LAB.R 08:00 | PROVIDERS: ATTEND Family Medicine | DX: R30.0 Dysuria (principal) | CPT/HCPCS: 87086 ==

== ENCOUNTER 2019-06-03 08:15 | Outpatient (CLI) | payer OTHER, BC ==
--- NOTE | 2019-06-14 10:59 | Mammography Report ---
Reason: ROUTINE MAMMO Procedure Date: 06/03/2019 Accession Number: [id number] / [id number] Procedure: TORSTEN - Screening Mammo w/Kb CPT Code: Final Report FULL RESULT: EXAM: Screening Mammo w/Kb DATE: 06/03/2019 8:58 AM CLINICAL HISTORY: Screening encounter. History of late childbearing. TECHNIQUE: (B) - Bilateral CC and MLO views were obtained. COMPARISON: 12/23/2016. PARENCHYMAL PATTERN: (A) - The breast(s) demonstrate(s) scattered fibroglandular densities. FINDINGS: There are no suspicious masses, calcifications, or areas of distortion. IMPRESSION: Negative examination. BI-RADS category 1. RECOMMENDATION: (ANNUAL) - Recommend routine annual screening mammography. BI-RADS CATEGORY: (1) - Negative. STANDARD QUALIFYING STATEMENTS: 1. This examination was not reviewed with the aid of Computer-Aided Detection (CAD). 2. A negative or benign imaging report should not preclude biopsy if clinically suspicious findings are present. 3. Dense breasts may obscure an underlying neoplasm. 4. This examination was reviewed with the aid of 3D breast imaging (tomosynthesis).
== END 2019-06-03 08:16 | disposition home or self-care (01) ==
LOC: DI 08:15
PROVIDERS: ATTEND Obstetrics & Gynecology
DX: Z12.31 Encounter for screening mammogram for malignant neoplasm of breast (principal)
CPT/HCPCS: 77063; 77067

== ENCOUNTER 2019-06-14 15:20 | Outpatient (CLI) | payer OTHER, BC ==
[2019-06-14 16:17] LABS: HB2 TOTAL 13.1 g/dL; HEMOGLOBIN A1C 0.54 g/dL; HEMOGLOBIN A1C % 5.9 % (4.6-6.2)
[2019-06-14 16:35] LABS: THYROID STIMULATING HORMONE 1.64 uIU/mL (0.34-5.60)
[2019-06-14 16:37] LABS: FREE T4 (FREE THYROXINE) 0.76 ng/dL (0.58-1.64)
[2019-06-14 16:41] LABS: PROLACTIN 16.5 ng/mL
== END 2019-06-14 15:21 | disposition home or self-care (01) ==
LOC: LAB 15:20
PROVIDERS: ATTEND Internal Medicine Endocrinology, Diabetes & Metabolism
DX: E22.1 Hyperprolactinemia (principal); R73.03 Prediabetes; E28.2 Polycystic ovarian syndrome
CPT/HCPCS: 36415; 83036; 84146; 84439; 84443

== ENCOUNTER 2019-06-16 10:05 | Outpatient (CLI) | payer OTHER, BC | END 2019-06-16 10:06 | disposition home or self-care (01) | LOC: LAB 10:05 | PROVIDERS: ATTEND Internal Medicine Endocrinology, Diabetes & Metabolism | DX: E22.1 Hyperprolactinemia (principal); R73.03 Prediabetes; E28.2 Polycystic ovarian syndrome | CPT/HCPCS: 36415; 82533 ==

== ENCOUNTER 2020-05-01 10:58 | Outpatient (CLI) | payer BC, OTHER ==
--- NOTE | 2020-05-02 08:35 | XRAY Report ---
PROCEDURE: Hand 3 View RT INDICATIONS: RIGHT THUMB PAIN TECHNIQUE: 3 views of the hand(s) acquired. COMPARISON: None FINDINGS: Bones: No fractures or dislocations. There is an expansile, circumscribed, lucent bone lesion in th e lateral base of the fifth middle phalanx. No other suspicious bony lesions. Soft tissues: No suspicious soft tissue calcifications. IMPRESSION: 1. No radiographic abnormality of the first phalanx to explain pain. 2. Expansile lucent bone lesion in the fifth middle phalanx suggestive of an enchondroma, less likely aneurysmal bone cyst. The appearance is benign. Reviewed by: Masha Schaffer MD on 05/02/2020 8:34 AM PST Approved by: Masha Schaffer MD on 05/02/2020 8:34 AM PST Station ID: [id number]
== END 2020-05-01 10:59 | disposition home or self-care (01) ==
LOC: DI.WCP 10:58
PROVIDERS: ATTEND Physician Assistant Medical
DX: M79.644 Pain in right finger(s) (principal); M89.9 Disorder of bone, unspecified

== ENCOUNTER 2020-05-30 08:00 | Outpatient (CLI) | payer OTHER ==
[2020-05-30 12:47] LABS: BASOPHILS # (AUTO) 0.1 10^3/uL (0.0-0.1); BASOPHILS % (AUTO) 0.6 %; EOSINOPHILS # (AUTO) 0.2 10^3/uL (0.0-0.7); EOSINOPHILS % (AUTO) 2.2 %; HGB - HEMOGLOBIN 12.7 g/dL (12.0-16.0); LYMPHOCYTES # (AUTO) 1.6 10^3/uL (1.5-3.5); MEAN CORPUSCULAR HEMOGLOBIN 29.6 pg (27.0-31.0); MEAN CORPUSCULAR HGB CONC 32.4 g/dL (32.0-36.0); MEAN CORPUSCULAR VOLUME 91.4 fL (81.0-99.0); MEAN PLATELET VOLUME 11.7 fL (7.9-10.8); MONOCYTES # (AUTO) 0.5 10^3/uL (0.0-1.0); MONOCYTES % (AUTO) 5.7 %; NEUTROPHILS # (AUTO) 5.6 10^3/uL (1.5-6.6); NEUTROPHILS % (AUTO) 71.1 %; PLT - PLATELET COUNT 312 10^3/uL (130-450); RED BLOOD COUNT 4.29 10^6/uL (4.20-5.40); RED CELL DISTRIBUTION WIDTH 13.2 % (12.0-15.0); WHITE BLOOD COUNT 7.9 x10^3/uL (4.8-10.8)
[2020-05-30 13:09] LABS: ALBUMIN 3.9 g/dL (3.2-5.5); ALKALINE PHOSPHATASE 48 IU/L (42-121); ALT ALANINE AMINOTRANSFERASE 19 IU/L (10-60); AST ASPARTATE AMINOTRANSFERASE 17 IU/L (10-42); BILIRUBIN,TOTAL 0.4 mg/dL (0.2-1.0); BUN - BLOOD UREA NITROGEN 12 mg/dL (6-20); CALCIUM 9.3 mg/dL (8.5-10.3); CARBON DIOXIDE - CO2 25 mmol/L (21-32); CHLORIDE 99 mmol/L (101-111); CHOL/HDL RATIO 4.2 (<4.4); CHOLESTEROL 204 mg/dL; CREATININE 0.7 mg/dL (0.4-1.0); GLUCOSE 94 mg/dL (70-100); HDL CHOLESTEROL 49 mg/dL; LDL CHOLESTEROL,CALCULATED 101 mg/dL; LDL/HDL RATIO 2.1 (<4.4); TOTAL PROTEIN 7.7 g/dL (6.7-8.2); VLDL CHOLESTEROL 54 mg/dL
== END 2020-05-30 23:59 | disposition home or self-care (01) ==
LOC: LAB.WCP 08:00
PROVIDERS: ATTEND Physician Assistant Medical
DX: Z00.00 Encounter for general adult medical examination without abnormal findings (principal); E78.5 Hyperlipidemia, unspecified; D50.9 Iron deficiency anemia, unspecified
CPT/HCPCS: 36415; 80053; 80061; 83721; 84443; 85025

== ENCOUNTER 2021-10-09 17:38 | Outpatient (CLI) | payer OTHER ==
--- NOTE | 2021-10-10 08:41 | XRAY Report ---
PROCEDURE: Finger(s) RT INDICATIONS: SPRAIN OF INTERPHALANGEAL JOINT OF RIGHT INDEX FINGER, INITIAL TECHNIQUE: AP hand, 3 views of the right finger(s) acquired. COMPARISON: X-ray of the right hand dated 05/01/2020 FINDINGS: Bones: No fractures or dislocations. The base of the proximal middle phalanx demonstrates an expansi le lucent lesion with circumscribed borders. No bony destruction. No interval change compared to prio r x-ray on 05/01/2020. Otherwise no suspicious bony lesions. Soft tissues: No suspicious soft tissue calcifications. IMPRESSION: 1. No acute abnormality. No fracture of the index finger. 2. Benign cystic bone lesion of the fifth proximal middle phalanx consistent with an enchondroma, les s likely aneurysmal bone cyst. The appearance is benign and unchanged compared to 05/01/2020. Reviewed by: Sami Bradshaw on 10/10/2021 8:39 AM PDT Approved by: Sami Bradshaw on 10/10/2021 8:39 AM PDT Station ID: [id number]
== END 2021-10-09 17:39 | disposition home or self-care (01) ==
LOC: DI 17:38
PROVIDERS: ATTEND Physician Assistant Medical
DX: S63.630A Sprain of interphalangeal joint of right index finger, initial encounter (principal); M89.9 Disorder of bone, unspecified

== ENCOUNTER 2022-04-16 09:34 | Outpatient (CLI) | payer OTHER ==
[2022-04-16 09:45] LABS: BASOPHILS # (AUTO) 0.1 10^3/uL (0.0-0.1); BASOPHILS % (AUTO) 0.7 %; EOSINOPHILS # (AUTO) 0.2 10^3/uL (0.0-0.7); EOSINOPHILS % (AUTO) 2.1 %; HCT - HEMATOCRIT 38.4 % (37.0-47.0); HGB - HEMOGLOBIN 13.3 g/dL (12.0-16.0); LYMPHOCYTES # (AUTO) 1.4 10^3/uL (1.5-3.5); LYMPHOCYTES % (AUTO) 13.9 %; MEAN CORPUSCULAR HEMOGLOBIN 29.5 pg (27.0-31.0); MEAN CORPUSCULAR HGB CONC 34.6 g/dL (32.0-36.0); MEAN CORPUSCULAR VOLUME 85.1 fL (81.0-99.0); MEAN PLATELET VOLUME 10.4 fL (7.9-10.8); MONOCYTES # (AUTO) 0.5 10^3/uL (0.0-1.0); NEUTROPHILS # (AUTO) 7.9 10^3/uL (1.5-6.6); PLT - PLATELET COUNT 379 10^3/uL (130-450); RED BLOOD COUNT 4.51 10^6/uL (4.20-5.40); RED CELL DISTRIBUTION WIDTH 14.3 % (12.0-15.0); WHITE BLOOD COUNT 10.1 x10^3/uL (4.8-10.8)
[2022-04-16 10:06] LABS: ALBUMIN 4.1 g/dL (3.2-5.5); ALKALINE PHOSPHATASE 86 IU/L (42-121); ALT ALANINE AMINOTRANSFERASE 22 IU/L (10-60); AST ASPARTATE AMINOTRANSFERASE 18 IU/L (10-42); BILIRUBIN,TOTAL 0.7 mg/dL (0.2-1.0); BUN - BLOOD UREA NITROGEN 8 mg/dL (6-20); CARBON DIOXIDE - CO2 26 mmol/L (21-32); CHLORIDE 96 mmol/L (101-111); CHOL/HDL RATIO 4.6 (<4.4); CHOLESTEROL 232 mg/dL; CREATININE 0.8 mg/dL (0.4-1.0); GFR - MDRD 77 (>89); GLUCOSE 122 mg/dL (70-100); HDL CHOLESTEROL 50 mg/dL; LDL CHOLESTEROL,CALCULATED 139 mg/dL; LDL/HDL RATIO 2.8 (<4.4); POTASSIUM 2.9 mmol/L (3.5-5.0); SODIUM 135 mmol/L (135-145); TOTAL PROTEIN 8.3 g/dL (6.7-8.2); TRIGLYCERIDES 213 mg/dL; VLDL CHOLESTEROL 43 mg/dL
== END 2022-04-16 09:35 | disposition home or self-care (01) ==
LOC: MERGE 09:34 → LAB 09:34
PROVIDERS: ATTEND Physician Assistant Medical
DX: E78.5 Hyperlipidemia, unspecified (principal); D50.9 Iron deficiency anemia, unspecified
CPT/HCPCS: 36415; 80053; 80061; 83721; 85025

== ENCOUNTER 2022-06-04 10:04 | Outpatient (CLI) | payer OTHER ==
[2022-06-04 10:41] LABS: CALCIUM 9.3 mg/dL (8.5-10.3); CREATININE 0.7 mg/dL (0.4-1.0); POTASSIUM 3.4 mmol/L (3.5-5.0)
== END 2022-06-04 10:05 | disposition home or self-care (01) ==
LOC: LAB 10:04
PROVIDERS: ATTEND Physician Assistant Medical
DX: N91.2 Amenorrhea, unspecified (principal); E87.6 Hypokalemia
CPT/HCPCS: 36415; 80048; 83001